=== PATIENT | female | born 1940 | race Caucasian/White ===

== ENCOUNTER → 2018-03-13 10:01 | Outpatient (CLI) | payer MEDICARE, MEDICAID, SELFPAY ==
[2018-03-13 10:08] LABS: Bacteria Urine None Seen; RBC Urine None Seen (0-5/HPF); WBC Urine None Seen (0-5/HPF)
[2018-03-13 10:46] LABS: Add Manual Diff / Slide Review NO; Appearance Urine UA CLEAR; Bilirubin Urine UA NEGATIVE (NEGATIVE); Color Urine UA YELLOW; Eosinophils Percent Auto 1.4 % (2-4); Glucose Urine UA NEGATIVE (Normal); Hematocrit 44.2 % (36-46); Hemoglobin 14.8 g/dL (12.0-16.0); Ketones Urine UA NEGATIVE (NEGATIVE); Leukocyte Esterase Urine UA NEGATIVE (NEGATIVE); Lymphocytes Percent Auto 36.2 % (25-40); Mean Corpuscular HGB Conc 33.4 % (30-36); Mean Corpuscular Hemoglobin 30.9 PG (26-34); Mean Corpuscular Volume 92.5 fL (80-100); Monocytes Percent Auto 7.8 % (3-14); Neutrophils Absolute Auto 3100 /uL (3000-5900); Neutrophils Percent Auto 53.6 % (50-75); Nitrite Urine UA Negative (Negative); Occult Blood Urine UA NEGATIVE (Negative); Platelet Count 198 X10^3/uL (150-400); Protein Urine UA NEGATIVE (Negative); Red Blood Cell Count 4.78 X10^6/uL (4.0-5.2); Red Cell Distribution Width 13.7 % (11.6-14.8); Specific Gravity Urine UA 1.015 (1.000-1.035); Urobilinogen Urine UA 0.2 E.U./dL (0.2); White Blood Cell Count 5.9 X10^3/uL (4.5-11.0)
[2018-03-13 10:55] LABS: Culture Indicated Urine Cult Not Indicated; Urine Comments Microscopic Normal
[2018-03-13 11:08] LABS: Alanine Aminotransferase 30 IU/L (9-52); Albumin Globulin Ratio 1.3 (1.0-2.8); Alkaline Phosphatase 112 U/L (38-126); Aspartate Aminotransferase 20 IU/L (14-36); BUN Creatinine Ratio 22.9 (6-22); Bilirubin Total 0.4 mg/dL (0.2-1.3); Blood Urea Nitrogen 16 mg/dL (7-17); Calcium 9.1 mg/dL (8.4-10.2); Carbon Dioxide 26 mmol/L (22-32); Chloride 104 mmol/L (98-107); Estimated Glomerular Filt Rate > 60.0 mL/min (>60); Globulin 3.1 g/dL (1.7-4.1); Glucose 92 mg/dL (80-110); HEMOLYSIS < 15 (0-50); Sodium 142 mmol/L (137-145); Total Protein 7.1 g/dL (6.3-8.2)
[2018-03-13 11:39] LABS: Thyroid Stimulating Hormone 1.57 uIU/mL (0.47-4.68)
== END ==
PROVIDERS: Family Provider Family Medicine; PCP Family Medicine; Visit Provider Internal Medicine
DX: R30.0 Dysuria (principal)
CPT/HCPCS: 36415; 80053; 81001; 84443; 85025

== ENCOUNTER → 2018-03-24 08:59 | Outpatient (CLI) | payer MEDICARE, MEDICAID, SELFPAY ==
[2018-03-24 09:31] LABS: Occult Blood 1 Negative (Negative)
[2018-03-24 09:36] LABS: Occult Blood 3 Negative
[2018-03-24 09:37] LABS: Occult Blood 2 Negative
== END ==
PROVIDERS: PCP Family Medicine; Visit Provider Internal Medicine
DX: R10.9 Unspecified abdominal pain (principal)
CPT/HCPCS: 82270; 86677

== ENCOUNTER → 2018-05-27 09:07 | Outpatient (CLI) | payer MEDICARE, MEDICAID, SELFPAY ==
[2018-05-27 11:20] LABS: Cholesterol 176 mg/dL (140-199); HDL Cholesterol 56 mg/dL (40-60); LDL Cholesterol Calculated 102 mg/dL (<100); Triglycerides 92 mg/dL (35-150)
== END ==
PROVIDERS: PCP Family Medicine; Visit Provider Family Medicine
DX: E78.2 Mixed hyperlipidemia (principal)
CPT/HCPCS: 36415; 80061

== ENCOUNTER → 2018-06-18 10:08 | Outpatient (CLI) | payer MEDICARE, MEDICAID, SELFPAY ==
[2018-06-18 10:18] LABS: Bacteria Urine None Seen; RBC Urine None Seen (0-5/HPF); WBC Urine None Seen (0-5/HPF)
[2018-06-18 10:53] LABS: Add Manual Diff / Slide Review NO; Eosinophils Percent Auto 3.1 % (2-4); Hematocrit 44.1 % (36-46); Hemoglobin 14.9 g/dL (12.0-16.0); Lymphocytes Percent Auto 34.2 % (25-40); Mean Corpuscular HGB Conc 33.9 % (30-36); Mean Corpuscular Volume 91.6 fL (80-100); Monocytes Percent Auto 8.1 % (3-14); Neutrophils Absolute Auto 2400 /uL (3000-5900); Neutrophils Percent Auto 53.6 % (50-75); Platelet Count 209 X10^3/uL (150-400); Red Blood Cell Count 4.81 X10^6/uL (4.0-5.2); Red Cell Distribution Width 13.1 % (11.6-14.8); White Blood Cell Count 4.5 X10^3/uL (4.5-11.0)
[2018-06-18 11:17] LABS: Blood Urea Nitrogen 12 mg/dL (7-17); Calcium 9.4 mg/dL (8.4-10.2); Carbon Dioxide 30 mmol/L (22-32); Chloride 106 mmol/L (98-107); Estimated Glomerular Filt Rate > 60.0 mL/min (>60); Glucose 96 mg/dL (80-110); HEMOLYSIS < 15 (0-50); Potassium 4.8 mmol/L (3.4-5.1); Sodium 144 mmol/L (137-145)
[2018-06-18 11:23] LABS: Hemoglobin A1C% w Est Avg Glu 5.5 % (4.0-6.0)
[2018-06-18 11:24] LABS: Transferrin 244 mg/dL (206-381)
[2018-06-18 12:10] LABS: Appearance Urine UA CLEAR; Bilirubin Urine UA NEGATIVE (NEGATIVE); Color Urine UA YELLOW; Glucose Urine UA NEGATIVE (Normal); Ketones Urine UA NEGATIVE (NEGATIVE); Leukocyte Esterase Urine UA NEGATIVE (NEGATIVE); Nitrite Urine UA Negative (Negative); Occult Blood Urine UA NEGATIVE (Negative); Protein Urine UA NEGATIVE (Negative); Urobilinogen Urine UA 0.2 E.U./dL (0.2); pH Urine UA 7.5 (4.5-8.0)
[2018-06-18 12:39] LABS: Culture Indicated Urine Cult Not Indicated; Squamous Epithelial Cell Urine 0-1 /HPF
== END ==
PROVIDERS: PCP Family Medicine; Visit Provider Orthopaedic Surgery
DX: Z01.818 Encounter for other preprocedural examination (principal); M25.562 Pain in left knee; Z01.812 Encounter for preprocedural laboratory examination; D64.9 Anemia, unspecified; R73.9 Hyperglycemia, unspecified; N39.0 Urinary tract infection, site not specified
CPT/HCPCS: 36415; 80048; 81001; 83036; 84466; 85025; 93005

== ENCOUNTER 2018-06-30 16:04 | Observation (INO) | payer MEDICARE, MEDICAID, SELFPAY ==
[2018-06-16 09:55] VITALS: BMI 35.6
[2018-06-29] VITALS (32 sets, daily range): BP systolic 106–164; BP diastolic 50–93; PULSE 70–106; RESP 10–20; TEMP 35–36.7; O2SAT 92–99; BMI 35.2
--- NOTE | 2018-06-29 08:27 | DI.RAD.S_ITS ---
PROCEDURE: XR KNEE RT 1TO2V INDICATIONS: prosthesis placement TECHNIQUE: 2 view(s) of the knee acquired. COMPARISON: [facility], , KNEE 3V LEFT, 05/14/2011, 11:30. FINDINGS: Bones: Patient is status post knee joint arthroplasty. Hardware components are in expected positions. Visualized bony structures are intact. Soft tissues: Overlying postoperative changes are noted. IMPRESSION: Post right knee arthroplasty changes with anatomic right knee alignment. Dictated by: Prosper Joseph M.D. on 06/29/2018 at 17:01 Approved by: Prosper Joseph M.D. on 06/29/2018 at 17:02
[2018-06-29] MEDS: ACETAMINOPHEN 325 MG TABLET 975 MG PO (11:38)
[2018-06-29] MEDS: PREGABALIN 75 MG CAPSULE PO (11:38)
[2018-06-29] MEDS: CELECOXIB 200 MG CAPSULE PO (11:39)
[2018-06-29] MEDS: LACTATED RINGERS 1,000 ML 42 ML IV ×2 (12:00→15:39)
--- NOTE | 2018-06-29 12:53 | PM.PREOP ---
Pre-operative Note Interval Note Pre-op Check: Yes History & Physical Reviewed by Physician and Yes Exam Performed Changes: No
[2018-06-29] MEDS: CEFAZOLIN 2 GM/100 ML FROZ.PIGGY IV ×2 (14:15→21:01)
--- NOTE | 2018-06-29 14:46 | SUR.OPER ---
Supine on padded OR bed. Pillow under head, arms secured on padded armboards <90 degree abduction. Safety belt across torso. Non-operative leg secured with tape over blanket over lower leg. Operative leg secured in DeMayo positioner.
[2018-06-29] MEDS: BUPIVACAINE 0.25% W/ EPI VIAL 50 ML INJ (14:50)
[2018-06-29] MEDS: MORPHINE 4 MG/ML INJ INJ (14:51)
[2018-06-29] MEDS: BUPIVACAINE LIPOSOME 266 MG/20 ML VIAL INJ (14:51)
--- NOTE | 2018-06-29 16:27 | P.OP_ITS ---
Operative Date/Time/Diagnoses Date of procedure: 06/29/18 Time of procedure: 16:05 Pre-op diagnosis: Right knee osteoarthritis Post-op diagnosis: same Procedure & Clinicians Procedure: Right total knee replacement Same procedure as scheduled: Yes Indications: The patient has had progressively worsening right knee pain with radiographic changes consistent with arthritis. Non-operative management has failed and the patient has requested total knee replacement. The risks, benefits and alternatives to surgery were discussed with the patient prior to proceeding. Risks discussed included, but were not limited to, failure to relieve pain, stiffness, infection, nerve damage, deep venous thrombosis, pulmonary embolism, stroke, coma, heart attack, permanent paralysis and , as well as the potential need for eventual revision of the prosthetic. Surgeon: Hugo Morejon Director Of Field Sales: Coy Gallardo Click Yes if Unassisted: No Anesthesia Type: General, Spinal and Local Operative Notes Findings: Severe tricompartmental osteoarthritis worse in the medial compartment. Closure Type: primary Specimen(s): none sent Implants & Drains: Implants used in this procedure were manufactured by the [employer] and [employer] and included the BCS II Journey total knee replacement with a size 5 right cobalt chromium femur, 4 right non porous tibial base plate, a 15 mm cross-linked polyethylene insert and a 35 mm oval Era II patella. Applied: graft(s) Estimated Blood Loss (mL): 100 Blood products transfused: none Tourniquet time (min): 62 Procedure in detail: The patient was seen in the pre-operative area, where the patient identified the right knee as the operative site and this was marked with my initials. The patient received pre-operative antibiotics, and was taken to the operating room and placed on the operative table in the supine position. After satisfactory anesthesia, a timekeeper supervisor out was performed. The right leg was encircled with a tourniquet about the proximal thigh, and the leg was prepared from the toes to the tourniquet with ChloroPrep in the usual fashion and draped through sterile drapes. The leg was elevated and exsanguinated with Eschmark bandage and the tourniquet inflated to 250 mmHg pressure. The knee was approached through an approximately 18 cm incision centered over the patella and carried into the knee through a medial parapatellar arthrotomy. The anterior osteophytes and soft tissues were removed. The rotational landmarks of Esperanza's line and the transepicondylar axis were marked on the femur with electrocautery, and intramedullary guide holes for the femur and tibia were created. The distal femoral cut was made in 6 degrees of valgus using the intramedullary guide at the primary cut setting. The proximal tibial cut was then made using the intramedullary guide, taking 9 mm of bone off the less involved side. The extension gap was checked and the rotation of the femoral component confirmed with the gap balancing system. The anterior, posterior and chamfer cuts were then made. The posterior osteophytes and soft tissues were then removed. The posterior capsule was injected with part of a mixture of 50 ml 0.25% Marcaine mixed with 20 ml Exparel and 4 mg of morphine for post-operative pain control. The remainder of this mixture was injected into the capsule and subcutaneous tissues during cement curing. The tibia was prepared with the rotation set by an extra medullary guide. Trial tibial and femoral components were then placed and the intercondylar notch cut through the femoral trial. Range of motion was 0-120 degrees, with good stability throughout the range. The patella was then cut to accommodate the patellar prosthetic. There was no need for a lateral release. The trials were then removed, and the femoral hole plugged with a bone plug. The bone was prepared with pulsatile lavage, and dried with a sponge. Cement was applied and the final prosthetics placed. Excess cement was removed during and after cement curing. After confirming there was no extruded cement posteriorly, the final tibial insert was placed. The knee was copiously irrigated and the tourniquet deflated. Hemostasis was obtained. The capsule was closed with interrupted # 2 polyester suture. The subcutaneous layer was closed with 3-0 Vicryl, and the skin with a running 3-0 V-Lock suture and SteriStrips. An Aquacel Ag dressing was applied and the patient was taken to recovery having tolerated the procedure well. Complications: none Condition: stable Disposition: PACU Plan for aftercare: The patient will be maintained on a standard total knee replacement protocol with weight bearing as tolerated. The patient will receive aspirin and sequential compression devices for DVT prophylaxis. The patient will be discharged home when safe for the home environment.
[2018-06-29] MEDS: ONDANSETRON 4 MG/2 ML INJ IV ×3 (16:30→19:25)
[2018-06-29] MEDS: METOCLOPRAMIDE 10 MG/2 ML INJ IV (16:35)
[2018-06-29] MEDS: EPHEDRINE 25 EACH IM (17:18)
--- NOTE | 2018-06-29 17:27 | SUR.PHASEI ---
As of this time, PACU stay has been eventful. Dr Bates at bedside at 1715 for consultation. Since admit problems have been nausea with emesis despite Propofol in OR, Zpofran 8mg postop and Reglan 10mg postop. Some concern presented for primarily somnolent state and dropping sats so O2 was started. Giving antiemetic that had drowsiness as a side effect was not ideal and an order was rec'd for Ephedrine IM. Next problem presenting was skin becoming moist and cool although other VSS. Temps were seen to decrease and CHANDAN started. Attempt unsuccessful resume RA so O2 at 2L NC maintained. At this time temps slowly rising and somnolent response seen.
--- NOTE | 2018-06-29 17:37 | SUR.PHASEI ---
Denies shivers and overheated now, nausea remains, no pain reported.
[2018-06-29] MEDS: NALOXONE 0.4 MG/ML VIAL 0.1 MG IV ×2 (18:12→18:46)
--- NOTE | 2018-06-29 18:21 | SUR.PHASEI ---
Still with some diaphoresis. Reports nausea still felt. Denies pain post Narcan dose. Temps are rising and CHANDAN remains off.
--- NOTE | 2018-06-29 18:54 | SUR.PHASEI ---
After an emesis gave a second dose of Narcan fully realizing that duration of action is less than the Duramorph that is most probably behind the symptoms. Per Dr Bates, patient is okay to transfer.
[2018-06-29] MEDS: LACTATED RINGERS 1,000 ML 125 ML IV (19:25)
--- NOTE | 2018-06-29 19:37 | PC.NURSE ---
Sonali shift note: Patient arrived from PACU with Jordy RN in stable condition. Remain on O2 at 2L via NC, sats 95%. VSS and afebrile. No c/o pain or discomfort. C/O nausea, medicated with Zofran IV as ordered. Right knee with enio wrap overlying aquacel, CDI. Ice pack in place, and SCDs. Friends at bedside providing supportive care. Call light within reach, verbalized understanding of using call light for staff assistance at all times.
[2018-06-30] MEDS: ONDANSETRON 4 MG/2 ML INJ IV (00:24)
[2018-06-30 00:50] VITALS: BP 136/87; PULSE 84; RESP 16; TEMP 36.6; O2SAT 97
[2018-06-30] MEDS: METOCLOPRAMIDE 10 MG/2 ML INJ IV ×2 (02:40→08:25)
[2018-06-30] MEDS: LACTATED RINGERS 1,000 ML 125 ML IV ×2 (03:34→11:49)
--- NOTE | 2018-06-30 04:36 | PC.NURSE ---
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 MD notified and new order for Reglan made. After being medicated with Reglan, nausea quieted down, able to drink some francisca valdemar. Pt was incontinent of urine earlier in the shift but did not want bedding changed until nausea under control. Pt able to roll well in bed to assist with the linen change. Denies pain. Dressing CDI. Bed alarm on.
[2018-06-30 04:39] VITALS: BP 149/79; PULSE 79; RESP 18; TEMP 36.6; O2SAT 100
[2018-06-30] MEDS: CEFAZOLIN 2 GM/100 ML FROZ.PIGGY IV (05:59)
[2018-06-30 07:06] LABS: Hematocrit 39.4 % (36-46)
--- NOTE | 2018-06-30 07:59 | PM.PNPO.1 ---
Subjective Date Patient Seen: 06/30/18 Time Patient Seen: 07:59 Interval history: The patient reports she has had significant nausea since surgery. Pain control has been excellent. Exam Vital Signs (past 8 hours): - 06/30/18 00:50 06/30/18 04:39 Temperature 97.8 F 97.9 F Pulse Rate 84 79 Respiratory Rate 16 18 Blood Pressure 136/87 149/79 H Pulse Oximetry 97 100 Oxygen Delivery Method Nasal Cannula Oxygen Flow Rate 2 Narrative Exam Narrative: Right knee wound is dressed with no drainage on the bandage. Calf is soft. Light touch and motion are intact in the right lower extremity. Objective Labs Result Diagrams: 06/30/18 06:45 Labs: Laboratory Results - last 24 hr 06/30/18 06:45 Hgb 13.0 Hct 39.4 Assessment & Plan Post-op Postoperative Procedures Operation Date: 06/29/18 12:45 Actual Procedures Side Surgeon p Total Knee Arthroplasty Right Hugo Morejon MD Postoperative day: 1 Postoperative status: doing well and other (Significant nausea) Postoperative status narrative: The patient is doing well with the exception of significant postoperative nausea. Postoperative plan: routine post-op care, ambulate and advance diet Postoperative plan narrative: She is receiving antiemetics and we will continue this. She will start physical therapy today. She will discharge to the home of friends once she is stable. Time Spent With Patient less than 15 minutes
[2018-06-30 08:10] VITALS: BP 136/70; PULSE 88; RESP 18; TEMP 36.2; O2SAT 95
[2018-06-30] MEDS: ONDANSETRON 4 MG ODT PO (08:32)
[2018-06-30] MEDS: ACETAMINOPHEN 325 MG TABLET 975 MG PO ×3 (08:33→20:36)
[2018-06-30] MEDS: DOCUSATE 100 MG CAPSULE PO ×2 (08:34→20:36)
[2018-06-30] MEDS: ASPIRIN EC 81 MG TABLET PO ×2 (08:34→20:36)
[2018-06-30] MEDS: CELECOXIB 200 MG CAPSULE PO (08:34)
--- NOTE | 2018-06-30 09:00 | PT.IIE ---
Current Diagnoses Bilateral primary osteoarthritis of knee (06/29/18) Surgery Performed Operation Date: 06/29/18 12:45 Actual Procedures p Total Knee Arthroplasty(Right) - Hugo Morejon MD Surgical History (Last Updated 06/16/18 @ 10:15 by Farzana Quezada, RN) Status post bilateral cataract extraction (Acute) Anesthesia complication (Resolved) History of tonsillectomy (Resolved 1945) Hx of knee surgery (Resolved 1985) Status post appendectomy (Resolved 1951) Status post colonoscopy (Resolved 2008) Status post dilation and curettage (Resolved 1969) Status post dilation and curettage (Resolved 1989) Medical History (Last Updated 06/16/18 @ 12:14 by Farzana Quezada, LILI) Anxiety about health (Acute) Arthritis (Acute) Hearing loss (Acute) RLS (restless legs syndrome) (Acute) Cataract (Chronic) Glaucoma (Chronic 1993) Oral herpes (Chronic) Scoliosis (Chronic) Shoulder pain (Chronic) Chicken pox (Resolved 1949) Gastric ulcer (Resolved 1983) Hemorrhoids (Resolved 1969) Measles (Resolved 1953) Mumps (Resolved 1966) Physical Therapy Inpatient Evaluation/Re-Eval M1 PT/OT-IP Prior Functional Status Start: 06/30/18 11:28 Freq: NEEDED Status: Active Protocol: Document 06/30/18 09:00 AB (Rec: 06/30/18 11:49 AB [email or web address]) Medical Review Prior Functional Status Medical History Reviewed Yes Communication able to make needs known Mobility and Gait stated that she is independent with all mobilities and ambulationw ithout AD Social History Household Members other Living Arrangements [place] Number of Floors (Floors) One Floor Number of Stairs To Enter/Railing? pt plans to stay at her friend 's house : 1 level house without steps to enter Home Environment Standard Height Toilet Walk in Shower Home Equipment Hand Held Shower Additional Social History Comment pt works at [employer] at [place] M2 PT-IP Current Condition Start: 06/30/18 11:28 Freq: NEEDED Status: Active Protocol: Document 06/30/18 09:00 AB (Rec: 06/30/18 11:49 AB [email or web address]) Physical Therapy Current Condition Current Condition Evaluation Date 06/30/18 Treatment Diagnosis s/p R TKA Onset Date 06/29/18 Weight Bearing Status Weight Bearing Status Weight Bear as Tolerated M3 PT-IP Subjective Start: 09/25/18 11:28 Freq: NEEDED Status: Active Protocol: Document 06/30/18 09:00 AB (Rec: 06/30/18 11:49 AB [email or web address]) Subjective Physical Therapy Visit Type Type Initial Evaluation Visit Start Time 09:00 Visit Stop Time 09:45 Total Visit Minutes 45 Number of UTILITIES EQUIPMENT REPAIRER Visits 0 Physical Therapy Visit Comments Patient Comments pt requested to use the toilet Therapy Pain Assessment Pain When Pain Assessed During Mobility Pain Present Pain Present Pain Reported Location Right Knee Intensity 5 Scale Used Numeric (1 - 10) Description Tightness Pain Management Techniques Apply Cold Timing of Activity with Medications M4 PT-IP Mobility and Gait Start: 06/30/18 11:28 Freq: NEEDED Status: Active Protocol: Document 06/30/18 09:00 AB (Rec: 06/30/18 11:49 AB [email or web address]) PT-Transfer Assessment Sit to and From Stand Sit to and from Stand Moderate Assistance 1 Person Assistance Use of Upper Extremities Equipment Transfer Assistive Device Gait Belt Front Wheeled Walker Orthotic/Prosthetic Devices or Brace: No Transfers Transfer Destination Bedside Commode Transfer Technique Stand Step Pivot Transfer Ability Level of Assist Moderate Assistance 1 Person Assistance Comments Mobility Comments pt was sitting on EOB with nursing and PT took over. pt with c/o increase nausea after transfers and unable to tolerate much after using the bedside commode. Gait Assessment Gait Gait Assistance Required: Moderate Assistance Distance (Feet) 3 Assistive Devices Assistive Device Gait Belt Front Wheeled Walker Gait Deviations General Gait Pattern Antalgic Decreased Stride Length Decreased Feet Clearance Factors Limiting Gait Function Factors Limiting Gait Function Decreased Activity Tolerance Decreased Strength Difficulty Following Directions Limited Range of Motion Pain Poor Balance Poor Safety Awareness Comments Gait Comments pt was able to took steps during transfers using FWW mod A and cues. PT-Balance Assessment Sitting Balance and Reactions Static Sitting Balance Ability Good Dynamic Sitting Balance Ability Good Standing Balance and Reactions Static Standing Balance Ability Fair Dynamic Standing Balance Ability Fair Device Used FWW M5 PT-IP Objective Assessments Start: 06/30/18 11:28 Freq: NEEDED Status: Active Protocol: Document 06/30/18 09:00 AB (Rec: 06/30/18 11:49 AB [email or web address]) Orientation Orientation/Cognition Level of Alertness Alert Orientation Name Age Birthday Month Date Year Day of Week Place Situation Safety Awareness Understands Safety Issues Gross Range of Motion Lower Extremity ROM Assessment Right Impaired Strength Lower Extremity Strength Assessment Right Impaired Knee 3-/5 Muscle Tone Muscle Tone WNL Yes M6 PT-IP Treatment Start: 06/30/18 11:28 Freq: NEEDED Status: Active Protocol: Document 06/30/18 09:00 AB (Rec: 06/30/18 11:49 AB [email or web address]) Physical Therapy Treatment Exercises Exercises Ankle Pumps Quad Sets Seated Knee Flexion/Extension Education Education Provided Precautions Weight Bearing Status Post-Op Packet Safety M7 PT-IP Assessment and Plan Start: 06/30/18 11:28 Freq: NEEDED Status: Active Protocol: Document 06/30/18 09:00 AB (Rec: 06/30/18 11:49 AB [email or web address]) PT Summary Assessment and Plan Potential Rehabilitation Potential Good Status of Condition at Evaluation Evolving Summary Impairments Pain ROM Strength Balance Coordination Sensation Tone Cognition Bed Mobility Transfers Gait Activity Tolerance Assessment Summary pt requiring mod A with transfers using FWW and plans to go her friend's house on d/ c. caregiver training set up this afternoon at 2pm and will conduct further caregiver training if appropriate. will continue to assess. Goals Bed Mobility Goal Standby Assistance Transfer Goal Standby Assistance Front Wheeled Walker Gait Goal Standby Assistance Front Wheel Walker Gait Distance 100 Days to Meet Goals 3 Frequency of Treatment Frequency Of Treatment Twice a Day Treatment Plan Physical Therapy Treatment Plan Bed Mobility Training Transfer Training Gait Training Therapeutic Exercise Balance Retraining Post Op Education Discharge Planning Hot or Cold Pack Neuromuscular Re-ed Coordination Retraining Manual Therapy Other Recommendations and Next Treatment ambulation Focus Recommendations To Nursing Amount of Assist Needed 1 Person Assist Discharge Recommendations PT Discharge Recommendations Home with 28/04 Assist Outpatient PT Equipment Needed for Home Before FWW Discharge
[2018-06-30 11:40] VITALS: BP 117/68; PULSE 84; RESP 18; TEMP 36.5; O2SAT 99
[2018-06-30] MEDS: OXYCODONE IR 5 MG TABLET PO (13:17)
--- NOTE | 2018-06-30 14:10 | PT.IPTN ---
Current Diagnoses Bilateral primary osteoarthritis of knee (06/29/18) Surgery Performed Operation Date: 06/29/18 12:45 Actual Procedures p Total Knee Arthroplasty(Right) - Hugo Morejon MD Physical Therapy Treatment Note M2 PT-IP Current Condition Start: 06/30/18 11:28 Freq: NEEDED Status: Active Protocol: Document 06/30/18 09:00 AB (Rec: 06/30/18 11:49 AB [email or web address]) Physical Therapy Current Condition Current Condition Evaluation Date 06/30/18 Treatment Diagnosis s/p R TKA Onset Date 06/29/18 Weight Bearing Status Weight Bearing Status Weight Bear as Tolerated M3 PT-IP Subjective Start: 06/30/18 11:28 Freq: NEEDED Status: Active Protocol: Document 06/30/18 14:10 AB (Rec: 06/30/18 17:02 AB [email or web address]) Subjective Physical Therapy Visit Type Type Treatment Note Visit Start Time 14:10 Visit Stop Time 14:50 Total Visit Minutes 40 Number of SPRING ASSEMBLER Visits 0 Therapy Pain Assessment Pain When Pain Assessed During Mobility Pain Present Pain Present Pain Reported Location Right Knee Scale Used pain scale not stated Pain Management Techniques Apply Cold Timing of Activity with Medications M4 PT-IP Mobility and Gait Start: 06/30/18 11:28 Freq: NEEDED Status: Active Protocol: Document 06/30/18 14:10 AB (Rec: 06/30/18 17:02 AB [email or web address]) PT-Bed Mobility Assessment Supine to Sit Supine to Sit Standby Assistance Sit to Supine Sit to Supine Standby Assistance Scooting Scooting to Edge of Bed Standby Assistance PT-Transfer Assessment Sit to and From Stand Sit to and from Stand Contact Guard Assistance Equipment Transfer Assistive Device Gait Belt Front Wheeled Walker Orthotic/Prosthetic Devices or Brace: No Transfers Transfer Destination Bed Transfer Technique Stand Step Pivot Transfer Ability Level of Assist Contact Guard Assistance 1 Person Assistance Comments Mobility Comments pt's friend present for caregiver training. educated on how to use safety belt and how to assist pt. caregiver was able to assist pt safely. Gait Assessment Gait Gait Assistance Required: Contact Guard Assist Distance (Feet) 30 Able to Maintain Weight Bearing Status Yes During Gait Assistive Devices Assistive Device Gait Belt Front Wheeled Walker Orthotic/Prosthetic Devices or Brace: No Gait Deviations General Gait Pattern Antalgic Decreased Stride Length Decreased Feet Clearance Factors Limiting Gait Function Factors Limiting Gait Function Decreased Activity Tolerance Decreased Strength Pain Poor Balance Comments Gait Comments pt completed ambulation using FWW 30 ft x 2 requiring CGA. pt's friend was able to assist pt safely. M5 PT-IP Objective Assessments Start: 06/30/18 11:28 Freq: NEEDED Status: Active Protocol: Document 06/30/18 09:00 AB (Rec: 06/30/18 11:49 AB [email or web address]) Orientation Orientation/Cognition Level of Alertness Alert Orientation Name Age Birthday Month Date Year Day of Week Place Situation Safety Awareness Understands Safety Issues Gross Range of Motion Lower Extremity ROM Assessment Right Impaired Strength Lower Extremity Strength Assessment Right Impaired Knee 3-/5 Muscle Tone Muscle Tone WNL Yes M6 PT-IP Treatment Start: 06/30/18 11:28 Freq: NEEDED Status: Active Protocol: Document 06/30/18 14:10 AB (Rec: 06/30/18 17:02 AB [email or web address]) Physical Therapy Treatment Education Education Provided Safety M7 PT-IP Assessment and Plan Start: 06/30/18 11:28 Freq: NEEDED Status: Active Protocol: Document 06/30/18 14:10 AB (Rec: 06/30/18 17:02 AB [email or web address]) PT Summary Assessment and Plan Potential Rehabilitation Potential Good Summary Impairments Pain ROM Strength Balance Coordination Sensation Tone Cognition Bed Mobility Transfers Gait Activity Tolerance Progress Towards Goals Slow Progress due to Pain Assessment Summary pt requiring CGA with mobility . caregiver training conducted and caregiver was able to safely assist pt. pt stated tht she will not be able to go to outpt PT for a few weeks due to home location and decrease activity tolerance. pt will then benefit from homehealth PT when pt goes home. pt may go home when medically stable. Goals Bed Mobility Goal Standby Assistance Transfer Goal Standby Assistance Front Wheeled Walker Gait Goal Standby Assistance Front Wheel Walker Gait Distance 100 Days to Meet Goals 3 Frequency of Treatment Frequency Of Treatment Twice a Day Treatment Plan Physical Therapy Treatment Plan Bed Mobility Training Transfer Training Gait Training Therapeutic Exercise Balance Retraining Post Op Education Discharge Planning Hot or Cold Pack Neuromuscular Re-ed Coordination Retraining Manual Therapy Other Recommendations and Next Treatment ambulation Focus Recommendations To Nursing Amount of Assist Needed 1 Person Assist Discharge Recommendations PT Discharge Recommendations Home with 24/7 Assist Home Health Outpatient PT Equipment Needed for Home Before FWW Discharge
[2018-06-30 15:54] VITALS: BP 152/70; PULSE 85; RESP 18; TEMP 36.5; O2SAT 96
[2018-06-30 20:30] VITALS: BP 150/81; PULSE 104; RESP 18; TEMP 36.6; O2SAT 96
[2018-06-30] MEDS: GABAPENTIN 300 MG CAPSULE 600 MG PO (20:36)
[2018-07-01 01:11] VITALS: BP 142/73; PULSE 94; RESP 16; TEMP 36.9; O2SAT 93
[2018-07-01] MEDS: OXYCODONE IR 5 MG TABLET PO (05:27)
[2018-07-01 06:00] VITALS: BP 157/76; PULSE 96; RESP 16; TEMP 36.8; O2SAT 96
--- NOTE | 2018-07-01 06:32 | PM.PNPO.1 ---
Subjective Date Patient Seen: 07/01/18 Time Patient Seen: 06:25 Interval history: The patient reports that she had difficulty with pain control last night due to unwillingness to use oxycodone. This improved when she did take pain medication. Exam Vital Signs (past 8 hours): - 07/01/18 01:11 07/01/18 06:00 Temperature 98.4 F 98.3 F Pulse Rate 94 H 96 H Respiratory Rate 16 16 Blood Pressure 142/73 H 157/76 H Pulse Oximetry 93 96 Oxygen Delivery Method Nasal Cannula Oxygen Flow Rate 0 Narrative Exam Narrative: Right knee wound is dressed with minimal drainage on the bandage. Calf is soft. Light touch and motion are intact in the right lower extremity. Objective Labs Result Diagrams: 06/30/18 06:45 Labs: Laboratory Results - last 24 hr 06/30/18 06:45 Hgb 13.0 Hct 39.4 Assessment & Plan Post-op Postoperative Procedures Operation Date: 06/29/18 12:45 Actual Procedures Side Surgeon p Total Knee Arthroplasty Right Hugo Morejon MD Postoperative day: 2 Postoperative status: doing well Postoperative status narrative: The patient is progressing with physical therapy slowly. Her pain control is adequate when she uses her medications as designed. She currently requires 24/7 care if she goes home today. Postoperative plan: routine post-op care Postoperative plan narrative: We will write for home health physical therapy. She would benefit from an additional day in the hospital to develop independence in case her caregivers have to leave the home for a period of time. She will be discharged tomorrow. Time Spent With Patient less than 15 minutes
[2018-07-01 07:50] VITALS: BP 155/80; PULSE 98; RESP 16; TEMP 36.9; O2SAT 94
--- NOTE | 2018-07-01 08:40 | CM.DPC ---
Addendum entered by KYLE Stahl 07/01/18 15:40: ADD: ANGIE spoke to pt's friend Selma ([phone]) who confirms that pt is now discharging to her home in [place] and would like [facility] there and then when pt goes home to switch to [facility] and SW updated that when pt goes home they would need to go through MD to set up [facility]. Friend Selma providing transport at d/c and would like SW to call when pt is officially discharged so that she can drive down from [place] to transport. SW called [facility] and updated that pt will not be utilizing them at d/c until later and they cancelled their start date. SW called [facility] with new referral and confirmed they can accept and faxed pt's clinicals with friends address and contact info and F2F and MD orders to review. Plan: ANGIE to follow for likely pt d/c tomorrow to friend Selma's house in [place] with [facility] to open pt to service. SW to call friend Selma when pt is discharged for transport. KYLE Stahl Original Note: DCP Home with HH planning: Per MD, pt making medical progress and seems to have better pain management today but not stable for d/c yet but likely tomorrow with PT. ANGIE received a message from pt's friend/caregiver at d/c Selma who requests [facility] at d/c. SW called [facility] and confirmed that they do not provide service to the [facility] still at this time. ANGIE called [facility] and confirmed that they do provide HH to [place] and they confirmed they can accept the pt and can open her to PT service on FriJul.06 for PT. BEN Skelton faxed new referral clinicals along with F2F and MD orders to review. Plan: ANGIE to follow for likely pt d/c back to [place] with friend/caregiver Selma tomorrow if medically stable with [facility] PT. SW to fax d/c summary to [facility] at discharge and provide [facility] brochure to the pt. KYLE Stahl
[2018-07-01] MEDS: ACETAMINOPHEN 325 MG TABLET 975 MG PO ×2 (10:09→15:11)
[2018-07-01] MEDS: GABAPENTIN 300 MG CAPSULE 600 MG PO ×2 (10:10→21:04)
[2018-07-01] MEDS: CELECOXIB 200 MG CAPSULE PO (10:10)
[2018-07-01] MEDS: DOCUSATE 100 MG CAPSULE PO ×2 (10:10→21:12)
[2018-07-01] MEDS: SODIUM CHLORIDE 0.9% FLUSH 10 ML IV (10:10)
[2018-07-01] MEDS: ASPIRIN EC 81 MG TABLET PO ×2 (10:10→21:12)
[2018-07-01] MEDS: HYDROCODONE/ACET 5/325 TABLET 2 TAB PO ×3 (10:13→21:11)
[2018-07-01 12:11] VITALS: BP 149/76; PULSE 94; RESP 17; TEMP 37.3; O2SAT 95
--- NOTE | 2018-07-01 12:47 | PT.IPTN ---
Current Diagnoses Bilateral primary osteoarthritis of knee (06/29/18) Surgery Performed Operation Date: 06/29/18 12:45 Actual Procedures p Total Knee Arthroplasty(Right) - Hugo Morejon MD Physical Therapy Treatment Note M2 PT-IP Current Condition Start: 06/30/18 11:28 Freq: NEEDED Status: Active Protocol: Document 06/30/18 09:00 AB (Rec: 06/30/18 11:49 AB [email or web address]) Physical Therapy Current Condition Current Condition Evaluation Date 06/30/18 Treatment Diagnosis s/p R TKA Onset Date 06/29/18 Weight Bearing Status Weight Bearing Status Weight Bear as Tolerated M3 PT-IP Subjective Start: 06/30/18 11:28 Freq: NEEDED Status: Active Protocol: Document 07/01/18 11:20 GGD (Rec: 07/01/18 12:47 GGD [id number]) Subjective Physical Therapy Visit Type Type Treatment Note Visit Start Time 10:55 Visit Stop Time 11:20 Total Visit Minutes 25 Number of INSURANCE ACCOUNT SPECIALIST Visits 1 Physical Therapy Visit Comments Patient Comments Pt states she want's to be able to get out of bed without help, but she can't lift her leg. Therapy Pain Assessment Pain When Pain Assessed At Rest Pain Present Pain Present Pain Reported Location Right Knee Intensity 3 Scale Used Numeric (1 - 10) Pain Management Techniques Apply Cold Timing of Activity with Medications M4 PT-IP Mobility and Gait Start: 06/30/18 11:28 Freq: NEEDED Status: Active Protocol: Document 07/01/18 11:20 GGD (Rec: 07/01/18 12:47 GGD [id number]) PT-Bed Mobility Assessment Supine to Sit Supine to Sit Contact Guard Assistance Bedrails Scooting Scooting to Edge of Bed Standby Assistance PT-Transfer Assessment Sit to and From Stand Sit to and from Stand Contact Guard Assistance Minimal Assistance 1 Person Assistance Use of Upper Extremities Equipment Transfer Assistive Device Gait Belt Front Wheeled Walker Orthotic/Prosthetic Devices or Brace: No Transfers Transfer Destination Chair Toilet Comments Mobility Comments Used leg healthcare recruiter for bed mobility. Min A for sit to stand from toilet, CGA from bed. Gait Assessment Gait Gait Assistance Required: Contact Guard Assist Distance (Feet) 160 Able to Maintain Weight Bearing Status Yes During Gait Assistive Devices Assistive Device Gait Belt Front Wheeled Walker Orthotic/Prosthetic Devices or Brace: No Gait Deviations General Gait Pattern Antalgic Decreased Stride Length Decreased Feet Clearance Factors Limiting Gait Function Factors Limiting Gait Function Decreased Activity Tolerance Decreased Strength Limited Range of Motion Pain M5 PT-IP Objective Assessments Start: 06/30/18 11:28 Freq: NEEDED Status: Active Protocol: Document 06/30/18 09:00 AB (Rec: 06/30/18 11:49 AB [email or web address]) Orientation Orientation/Cognition Level of Alertness Alert Orientation Name Age Birthday Month Date Year Day of Week Place Situation Safety Awareness Understands Safety Issues Gross Range of Motion Lower Extremity ROM Assessment Right Impaired Strength Lower Extremity Strength Assessment Right Impaired Knee 3-/5 Muscle Tone Muscle Tone WNL Yes M6 PT-IP Treatment Start: 06/30/18 11:28 Freq: NEEDED Status: Active Protocol: Document 07/01/18 11:20 GGD (Rec: 07/01/18 12:47 GGD [id number]) Physical Therapy Treatment Exercises Exercises Ankle Pumps Quad Sets Heel Slides Seated Knee Flexion/Extension Education Education Provided Safety M7 PT-IP Assessment and Plan Start: 06/30/18 11:28 Freq: NEEDED Status: Active Protocol: Document 07/01/18 11:20 GGD (Rec: 07/01/18 12:47 GGD [id number]) PT Summary Assessment and Plan Summary Assessment Summary Pt progressing with gait. She need mod cues for bed mobility with use of leg healthcare recruiter. She needed assist for sit to stand from toilet. Frequency of Treatment Frequency Of Treatment Twice a Day Treatment Plan Physical Therapy Treatment Plan Bed Mobility Training Transfer Training Gait Training Therapeutic Exercise Balance Retraining Post Op Education Discharge Planning Hot or Cold Pack Neuromuscular Re-ed Coordination Retraining Manual Therapy Other Recommendations and Next Treatment ambulation Focus Recommendations To Nursing Amount of Assist Needed 1 Person Assist Discharge Recommendations PT Discharge Recommendations Home with 28/04 Assist Home Health Outpatient PT
--- NOTE | 2018-07-01 15:55 | PT.IPTN ---
Current Diagnoses Bilateral primary osteoarthritis of knee (06/29/18) Surgery Performed Operation Date: 06/29/18 12:45 Actual Procedures p Total Knee Arthroplasty(Right) - Hugo Morejon MD Physical Therapy Treatment Note M2 PT-IP Current Condition Start: 06/30/18 11:28 Freq: NEEDED Status: Active Protocol: Document 06/30/18 09:00 AB (Rec: 06/30/18 11:49 AB [email or web address]) Physical Therapy Current Condition Current Condition Evaluation Date 06/30/18 Treatment Diagnosis s/p R TKA Onset Date 06/29/18 Weight Bearing Status Weight Bearing Status Weight Bear as Tolerated M3 PT-IP Subjective Start: 06/30/18 11:28 Freq: NEEDED Status: Active Protocol: Document 07/01/18 15:55 GGD (Rec: 07/01/18 16:39 GGD [id number]) Subjective Physical Therapy Visit Type Type Treatment Note Visit Start Time 15:25 Visit Stop Time 15:55 Total Visit Minutes 30 Number of METAL BONDING CRIB ATTENDANT Visits 2 Physical Therapy Visit Comments Patient Comments Pt states that she want's to practice getting in and out of bed. Therapy Pain Assessment Pain When Pain Assessed At Rest Pain Present Pain Present Pain Reported Location Right Knee Scale Used pain scale not stated Pain Management Techniques Apply Cold Timing of Activity with Medications M4 PT-IP Mobility and Gait Start: 06/30/18 11:28 Freq: NEEDED Status: Active Protocol: Document 07/01/18 15:55 GGD (Rec: 07/01/18 16:39 GGD [id number]) PT-Bed Mobility Assessment Sit to Supine Sit to Supine Standby Assistance Scooting Scooting to Edge of Bed Standby Assistance PT-Transfer Assessment Sit to and From Stand Sit to and from Stand Minimal Assistance 1 Person Assistance Use of Upper Extremities Equipment Transfer Assistive Device Gait Belt Front Wheeled Walker Orthotic/Prosthetic Devices or Brace: No Transfers Transfer Destination Chair Comments Mobility Comments Used leg angle dozer operator for bed mobility. Gait Assessment Gait Gait Assistance Required: Contact Guard Assist Distance (Feet) 220 Able to Maintain Weight Bearing Status Yes During Gait Assistive Devices Assistive Device Gait Belt Front Wheeled Walker Orthotic/Prosthetic Devices or Brace: No Gait Deviations General Gait Pattern Antalgic Decreased Stride Length Decreased Feet Clearance Factors Limiting Gait Function Factors Limiting Gait Function Decreased Activity Tolerance Decreased Strength Limited Range of Motion Pain M5 PT-IP Objective Assessments Start: 06/30/18 11:28 Freq: NEEDED Status: Active Protocol: Document 06/30/18 09:00 AB (Rec: 06/30/18 11:49 AB [email or web address]) Orientation Orientation/Cognition Level of Alertness Alert Orientation Name Age Birthday Month Date Year Day of Week Place Situation Safety Awareness Understands Safety Issues Gross Range of Motion Lower Extremity ROM Assessment Right Impaired Strength Lower Extremity Strength Assessment Right Impaired Knee 3-/5 Muscle Tone Muscle Tone WNL Yes M6 PT-IP Treatment Start: 06/30/18 11:28 Freq: NEEDED Status: Active Protocol: Document 07/01/18 15:55 GGD (Rec: 07/01/18 16:39 GGD [id number]) Physical Therapy Treatment Exercises Exercises Ankle Pumps Quad Sets Heel Slides Seated Knee Flexion/Extension Education Education Provided Safety M7 PT-IP Assessment and Plan Start: 06/30/18 11:28 Freq: NEEDED Status: Active Protocol: Document 07/01/18 15:55 GGD (Rec: 07/01/18 16:39 GGD [id number]) PT Summary Assessment and Plan Summary Assessment Summary Pt progress with mobilty. She needed less assist with bed mobility using leg angle dozer operator. She needed min A for sit to stand from lower surface. She progress with gait. Frequency of Treatment Frequency Of Treatment Twice a Day Treatment Plan Physical Therapy Treatment Plan Bed Mobility Training Transfer Training Gait Training Therapeutic Exercise Balance Retraining Post Op Education Discharge Planning Hot or Cold Pack Neuromuscular Re-ed Coordination Retraining Manual Therapy Other Recommendations and Next Treatment Sit to stand. Focus Recommendations To Nursing Amount of Assist Needed 1 Person Assist Discharge Recommendations PT Discharge Recommendations Home with 28/04 Assist Home Health Outpatient PT
[2018-07-01 16:35] VITALS: BP 165/77; PULSE 92; RESP 17; TEMP 36.9; O2SAT 95
[2018-07-01 19:55] VITALS: BP 148/81; PULSE 93; RESP 17; TEMP 36.3; O2SAT 90
[2018-07-02 00:01] VITALS: BP 141/76; PULSE 89; RESP 18; TEMP 36.4; O2SAT 94
[2018-07-02 08:27] VITALS: BP 143/81; PULSE 108; RESP 16; TEMP 37.3; O2SAT 95
[2018-07-02] MEDS: ACETAMINOPHEN 325 MG TABLET 975 MG PO (09:25)
[2018-07-02] MEDS: ASPIRIN EC 81 MG TABLET PO (09:25)
[2018-07-02] MEDS: CELECOXIB 200 MG CAPSULE PO (09:25)
[2018-07-02] MEDS: DOCUSATE 100 MG CAPSULE PO (09:26)
--- NOTE | 2018-07-02 10:50 | PT.IPTN ---
Current Diagnoses Bilateral primary osteoarthritis of knee (06/29/18) Unilateral primary osteoarthritis, right knee (06/29/18) Surgery Performed Operation Date: 06/29/18 12:45 Actual Procedures p Total Knee Arthroplasty(Right) - Hugo Morejon MD Physical Therapy Treatment Note M2 PT-IP Current Condition Start: 06/30/18 11:28 Freq: NEEDED Status: Active Protocol: Document 06/30/18 09:00 AB (Rec: 06/30/18 11:49 AB [email or web address]) Physical Therapy Current Condition Current Condition Evaluation Date 06/30/18 Treatment Diagnosis s/p R TKA Onset Date 06/29/18 Weight Bearing Status Weight Bearing Status Weight Bear as Tolerated M3 PT-IP Subjective Start: 06/30/18 11:28 Freq: NEEDED Status: Active Protocol: Document 07/02/18 10:50 GGD (Rec: 07/02/18 12:49 GGD [id number]) Subjective Physical Therapy Visit Type Type Treatment Note Visit Start Time 10:20 Visit Stop Time 10:50 Total Visit Minutes 30 Number of SEGMENT PRODUCER Visits 3 Physical Therapy Visit Comments Patient Comments Pt states that she feels ready to go home. Therapy Pain Assessment Pain When Pain Assessed At Rest Pain Present Pain Present Pain Reported Location Right Knee Intensity 3 Scale Used Numeric (1 - 10) Pain Management Techniques Apply Cold M4 PT-IP Mobility and Gait Start: 06/30/18 11:28 Freq: NEEDED Status: Active Protocol: Document 07/02/18 10:50 GGD (Rec: 07/02/18 12:49 GGD [id number]) PT-Bed Mobility Assessment Supine to Sit Supine to Sit Standby Assistance Bedrails Sit to Supine Sit to Supine Standby Assistance Scooting Scooting to Edge of Bed Standby Assistance PT-Transfer Assessment Sit to and From Stand Sit to and from Stand Contact Guard Assistance Use of Upper Extremities Equipment Transfer Assistive Device Gait Belt Front Wheeled Walker Orthotic/Prosthetic Devices or Brace: No Transfers Transfer Destination Bed Chair Comments Mobility Comments Used leg manager transfer for bed mobility. Gait Assessment Gait Gait Assistance Required: Contact Guard Assist Distance (Feet) 220 Able to Maintain Weight Bearing Status Yes During Gait Assistive Devices Assistive Device Gait Belt Front Wheeled Walker Orthotic/Prosthetic Devices or Brace: No Gait Deviations General Gait Pattern Antalgic Decreased Stride Length Decreased Feet Clearance Factors Limiting Gait Function Factors Limiting Gait Function Decreased Activity Tolerance Decreased Strength Limited Range of Motion Pain M5 PT-IP Objective Assessments Start: 06/30/18 11:28 Freq: NEEDED Status: Active Protocol: Document 06/30/18 09:00 AB (Rec: 06/30/18 11:49 AB [email or web address]) Orientation Orientation/Cognition Level of Alertness Alert Orientation Name Age Birthday Month Date Year Day of Week Place Situation Safety Awareness Understands Safety Issues Gross Range of Motion Lower Extremity ROM Assessment Right Impaired Strength Lower Extremity Strength Assessment Right Impaired Knee 3-/5 Muscle Tone Muscle Tone WNL Yes M6 PT-IP Treatment Start: 06/30/18 11:28 Freq: NEEDED Status: Active Protocol: Document 07/02/18 10:50 GGD (Rec: 07/02/18 12:49 GGD [id number]) Physical Therapy Treatment Exercises Exercises Ankle Pumps Quad Sets Heel Slides Seated Knee Flexion/Extension M7 PT-IP Assessment and Plan Start: 06/30/18 11:28 Freq: NEEDED Status: Active Protocol: Document 07/02/18 10:50 GGD (Rec: 07/02/18 12:49 GGD [id number]) PT Summary Assessment and Plan Summary Assessment Summary Pt improving with bed mobility and not needing assist. She continue to improve with gait pace and distance. Frequency of Treatment Frequency Of Treatment Twice a Day Treatment Plan Physical Therapy Treatment Plan Bed Mobility Training Transfer Training Gait Training Therapeutic Exercise Balance Retraining Post Op Education Discharge Planning Hot or Cold Pack Neuromuscular Re-ed Coordination Retraining Manual Therapy Other Recommendations and Next Treatment Sit to stand. Focus Recommendations To Nursing Amount of Assist Needed 1 Person Assist Discharge Recommendations PT Discharge Recommendations Home with 28/04 Assist Home Health Outpatient PT
--- NOTE | 2018-07-02 12:06 | PM.DS.1 ---
History of Present Illness Date Patient Seen: 07/02/18 Time Patient Seen: 07:09 Chief complaint: [id number] RIGHT TOTAL KNEE ARTHROPLASTY Narrative: The patient has had progressively worsening right knee pain with radiographic changes consistent with arthritis. Non-operative management has failed and the patient has requested total knee replacement. The risks, benefits and alternatives to surgery were discussed with the patient prior to proceeding. Risks discussed included, but were not limited to, failure to relieve pain, stiffness, infection, nerve damage, deep venous thrombosis, pulmonary embolism, stroke, coma, heart attack, permanent paralysis and , as well as the potential need for eventual revision of the prosthetic. Discharge Providers Date of admission: 06/29/18 10:48 Primary care physician: Camilo Emmanuel MD Consults: 06/29/18 19:02 Consult to Discharge Planning Routine Comment: Consult to Physical Therapy Evaluate & Treat Comment: Physician Instructions: postop TKA protocol 07/01/18 06:29 Consult to Home Health Routine Comment: Reason For Exam: Home health PT 3 times weekly for 3 weeks 07/01/18 08:33 Consult to Home Health Routine Comment: Right total knee arthroplasty Reason For Exam: Set up [facility] for pt d/c home Discharge provider: Coy Gallardo PA-C Summary Discharge Diagnosis: Status post right total knee arthroplasty Hospital Course: Patient admitted to the hospital for right total knee arthroplasty. Patient consented to the same. Patient taken to the operating room underwent general spinal anesthesia. Patient also had local anesthesia. Patient underwent right total knee arthroplasty. Patient back in her room recovering well and is in stable condition. Exam Vital Signs (past 8 hours): - 07/02/18 08:27 Temperature 99.1 F Pulse Rate 108 H Respiratory Rate 16 Blood Pressure 143/81 H Pulse Oximetry 95 Oxygen Delivery Method Nasal Cannula Oxygen Flow Rate 0 Narrative Exam Narrative: Moderate swelling generally about the right knee. No erythema or ecchymosis. The dressing is clean, dry and intact. Motor functions intact to the distal right lower extremity. Sensation is grossly intact to light touch right lower extremity. Objective Labs Result Diagrams: 06/30/18 06:45 Discharge Plan Discharge Plan Patient Disposition: Home Health Service Transfer to: Home Health, Other Discharge comment: DC with PT Discharge Med Rec/Prescriptions Prescriptions: New hydrocodone-acetaminophen 5-325 mg Tablet 2 tab PO Q4HR PRN (Reason: Pain, Severe (7-10)) Qty: 60 RF: 0 aspirin 81 mg Tablet,Delayed Release (Dr/Ec) 81 mg PO BID Qty: 60 RF: 1 Continue multivitamin Capsule 1 cap PO DAILY Qty: 0 RF: 0 cholecalciferol (vitamin D3) [Vitamin D3] 1,000 unit Capsule 1,000 unit PO DAILY Qty: 0 RF: 0 gabapentin [Neurontin] 300 MG capsule 600 mg PO HS Qty: 60 RF: 6 acetaminophen-codeine [Tylenol-Codeine #3] 300-30 mg tablet 1 tab PO Q4-6H PRN (Reason: pain) Qty: 60 RF: 0 celecoxib 200 mg Capsule 200 mg PO QAM RF: 0 timolol 0.5 % Drops 1 drp EYE-BOTH QAM RF: 0 Follow up/Referrals: Camilo Emmanuel MD [Primary Care Provider] - (please follow up with dr emmanuel as needed [phone]) Hugo Morejon MD [Physician] - 1 Week () Provider Discharge Instructions Diet: Diet as Tolerated Activity: WBAT Cold/Heat Therapy: ice as needed Skin/Wound/Dressing Care Report to your healthcare provider any signs of infection, such as:: chills, fever, night sweats, increased pain and unusual drainage Dressing: keep clean and dry Visit Report/Discharge Packet Instructions: Hydrocodone Combination Products Visit Report Forms: Stroke Signs & Symptoms Discharge Data Primary Care Provider: Camilo Emmanuel Attending Provider: Hugo Morejon Admit Date/Time: 06/29/18 10:48
[2018-07-02] MEDS: HYDROCODONE/ACET 5/325 TABLET 2 TAB PO (13:01)
--- NOTE | 2018-07-02 16:08 | CM.DPC ---
DC NOte: Met w/pt and LILI Garcia today at bedside to review DCP. Pt remains agreeable to going home w/friend Selma and [facility] to assist. Pt plans to stay w/her friend for 2 weeks at least (in [place]) before returning to [place]. Pt confident about her DC today and has no further questions or concerns. Requested that inventory administrator Christopher fax [facility] pt's DC summary. ERICKA
== END 2018-07-02 13:23 | disposition home health service (06) ==
LOC: AC 07-02 11:53 → OR 07-02 16:30 → AC 07-02 16:33
PROVIDERS: Admitting Provider Orthopaedic Surgery; Family Provider Family Medicine; PCP Family Medicine; Visit Provider Orthopaedic Surgery
PROC: 0SRC0JZ Replacement of Right Knee Joint with Synthetic Substitute, Open Approach (ICD-10-PCS; CPT 27447; principal; 2018-06-29 12:45)
DX: M17.11 Unilateral primary osteoarthritis, right knee (principal); Z86.73 Personal history of transient ischemic attack (TIA), and cerebral infarction without residual deficits; I25.2 Old myocardial infarction
CPT/HCPCS: 27447; 36415; 73560; 85014; 85018; 97116; 97162; 97530; C1776; G0378; C9290; J0690; J1100; J2270; J2274; J2310; J2405; J2704; J2765; J3010

== ENCOUNTER → 2018-09-17 08:46 | Outpatient (CLI) | payer MEDICARE, MEDICAID, SELFPAY ==
[2018-06-29 19:33] VITALS: BMI 35.2
[2018-09-17 09:29] LABS: Add Manual Diff / Slide Review NO; Eosinophils Percent Auto 1.5 % (2-4); Hematocrit 42.2 % (36-46); Hemoglobin 14.2 g/dL (12.0-16.0); Lymphocytes Percent Auto 34.6 % (25-40); Mean Corpuscular HGB Conc 33.6 % (30-36); Mean Corpuscular Hemoglobin 31.6 PG (26-34); Mean Corpuscular Volume 94.2 fL (80-100); Monocytes Percent Auto 8.7 % (3-14); Neutrophils Absolute Auto 2700 /uL (3000-5900); Neutrophils Percent Auto 54.2 % (50-75); Platelet Count 229 X10^3/uL (150-400); Red Blood Cell Count 4.48 X10^6/uL (4.0-5.2); Red Cell Distribution Width 13.9 % (11.6-14.8); White Blood Cell Count 4.9 X10^3/uL (4.5-11.0)
[2018-09-17 09:45] LABS: BUN Creatinine Ratio 18.3 (6-22); Blood Urea Nitrogen 11 mg/dL (7-17); Calcium 9.4 mg/dL (8.4-10.2); Carbon Dioxide 26 mmol/L (22-32); Chloride 105 mmol/L (98-107); Estimated Glomerular Filt Rate > 60.0 mL/min (>60); Glucose 92 mg/dL (80-110); HEMOLYSIS < 15 (0-50); Potassium 4.2 mmol/L (3.4-5.1); Sodium 144 mmol/L (137-145)
== END ==
PROVIDERS: PCP Family Medicine; Visit Provider Orthopaedic Surgery
DX: Z01.818 Encounter for other preprocedural examination (principal)
CPT/HCPCS: 36415; 80048; 85025

== ENCOUNTER 2018-10-20 12:59 | Inpatient (IN) | payer MEDICARE, MEDICAID, SELFPAY ==
[2018-06-29 19:33] VITALS: BMI 35.2
[2018-10-01 10:45] VITALS: BMI 35.6
[2018-10-19] VITALS (16 sets, daily range): BP systolic 113–152; BP diastolic 45–90; PULSE 73–102; RESP 10–20; TEMP 35.8–36.3; O2SAT 90–100; BMI 35.3
[2018-10-19] MEDS: ACETAMINOPHEN 325 MG TABLET 975 MG PO ×3 (09:01→20:13)
[2018-10-19] MEDS: CELECOXIB 200 MG CAPSULE PO (09:01)
[2018-10-19] MEDS: PREGABALIN 75 MG CAPSULE PO (09:01)
[2018-10-19] MEDS: LACTATED RINGERS 1,000 ML 42 ML IV ×2 (09:19→11:14)
--- NOTE | 2018-10-19 09:19 | SUR.OPER ---
Supine on padded OR bed. Pillow under head, arms secured on padded armboards <90 degree abduction. Safety belt across torso. Non-operative leg secured with tape over blanket over lower leg. Operative leg secured in DeMayo/Deion positioner. Foam padded brace at thigh of operative leg.
--- NOTE | 2018-10-19 09:56 | PM.PREOP ---
Pre-operative Note Interval Note History & Physical reviewed/Exam performed by Physician: Yes Changes to H&P: No
--- NOTE | 2018-10-19 10:14 | P.OP_ITS ---
Operative Date/Time/Diagnoses Date of procedure: 10/19/18 Time of procedure: 11:45 Pre-op diagnosis: Left knee osteoarthritis Post-op diagnosis: same Procedure & Clinicians Procedure: Left total knee replacement Same procedure as scheduled: Yes Indications: The patient has had progressively worsening left knee pain with radiographic changes consistent with arthritis. Non-operative management has failed and the patient has requested total knee replacement. The risks, benefits and alternatives to surgery were discussed with the patient prior to proceeding. Risks discussed included, but were not limited to, failure to relieve pain, stiffness, infection, nerve damage, deep venous thrombosis, pulmonary embolism, stroke, coma, heart attack, permanent paralysis and , as well as the potential need for eventual revision of the prosthetic. Surgeon: Hugo Morejon Director Of Software Development: Coy Gallardo Click Yes if Unassisted: No Anesthesia Type: General and Local Operative Notes Findings: Severe tricompartmental osteoarthritis with bony erosion medially and large tricompartmental osteophytes. Closure Type: primary Specimen(s): none sent Implants & Drains: Implants used in this procedure were manufactured by the [employer] and [employer] and included the BCS II Journey total knee replacement with a size 5 left cobalt chromium femur, 4 left non porous tibial base plate, a 9 mm cross-linked polyethylene tibial insert, and a 35 mm oval Era II patella. Applied: implant(s) Estimated Blood Loss (mL): 50 Blood products transfused: none Tourniquet time (min): 59 Procedure in detail: The patient was seen in the pre-operative area, where the left knee was identified as the operative site and this was marked with my initials. The patient received pre-operative antibiotics, and was taken to the operating room and placed on the operative table in the supine position. After satisfactory anesthesia, a time cycle operator out? was performed. The left leg was encircled with a tourniquet about the proximal thigh, and the leg was prepared from the toes to the tourniquet with ChloroPrep in the usual fashion and draped through sterile drapes. The leg was elevated and exsanguinated with Eschmark bandage and the tourniquet inflated to 250 mmHg pressure. The knee was approached through an approximately 18 cm incision centered over the patella and carried into the knee through a medial parapatellar arthrotomy. The anterior osteophytes and soft tissues were removed. The rotational landmarks of Ogle's line and the transepicondylar axis were marked on the femur with electrocautery, and intramedullary guide holes for the femur and tibia were created. The distal femoral cut was made in 6 degrees of valgus using the intramedullary guide at the primary cut setting. The proximal tibial cut was then made using the intramedullary guide, taking 9 mm of bone off the less involved side. The extension gap was checked and the rotation of the femoral component confirmed with the gap balancing blocks. The anterior, posterior and chamfer cuts were then made. The posterior osteophytes and soft tissues were then removed. The posterior capsule was injected with part of a mixture of 60 ml 0.25% Marcaine mixed with 20 ml Exparel and 4 mg of morphine for post-operative pain control. The remainder of this mixture was injected into the capsule and subcutaneous tissues during cement curing. The tibia was prepared with the rotation set by an extra medullary guide. Trial tibial and femoral components were then placed and the intercondylar notch cut through the femoral trial. Range of motion was 0-125 degrees, with good stability throughout the range. The patella was then cut to accommodate the patellar prosthetic. There was no need for a lateral release. The trials were then removed, and the femoral hole plugged with a bone plug. The bone was prepared with pulsatile lavage, and dried with a sponge. Cement was applied and the final prosthetics placed. Excess cement was removed during and after cement curing. After confirming there was no extruded cement posteriorly, the final tibial insert was placed. The knee was copiously irrigated and the tourniquet deflated. Hemostasis was obtained. The capsule was closed with interrupted # 2 polyester sutures. The subcutaneous layer was closed with 3-0 Vicryl, and the skin with a running 3-0 V-Lock suture and SteriStrips. An Aquacel Ag dressing was applied and the patient was taken to recovery having tolerated the procedure well. Complications: none Condition: stable Disposition: PACU Plan for aftercare: The patient will be maintained on a standard total knee replacement protocol with weight bearing as tolerated. The patient will receive aspirin and sequential compression devices for DVT prophylaxis. The patient will be discharged home when safe for the home environment.
[2018-10-19] MEDS: CEFAZOLIN 2 GM/100 ML FROZ.PIGGY IV ×2 (10:16→17:57)
[2018-10-19] MEDS: TRANEXAMIC ACID 1,000 MG VIAL 2000 MG INJ (10:45)
[2018-10-19] MEDS: BUPIVACAINE 0.25% W/ EPI VIAL 50 ML INJ (10:50)
[2018-10-19] MEDS: BUPIVACAINE LIPOSOME 266 MG/20 ML VIAL INJ (10:50)
[2018-10-19] MEDS: MORPHINE 4 MG/ML INJ SUBCUT (10:52)
--- NOTE | 2018-10-19 12:04 | DI.RAD.S_ITS ---
PROCEDURE: XR KNEE LT 1TO2V INDICATIONS: post op total knee TECHNIQUE: 2 view(s) of the knee acquired. COMPARISON: [facility], CR, XR KNEE RT 1TO2V, 06/29/2018, 16:31. FINDINGS: Bones: Patient is status post left knee joint arthroplasty. Hardware components are in expected positions. Visualized bony structures are intact. Soft tissues: Overlying postoperative changes are noted. IMPRESSION: Normal postoperative examination. Dictated by: Dayron Bryant M.D. on 10/19/2018 at 11:34 Approved by: Dayron Bryant M.D. on 10/19/2018 at 11:35
[2018-10-19] MEDS: LACTATED RINGERS 1,000 ML 125 ML IV ×2 (14:32→23:24)
[2018-10-19] MEDS: ONDANSETRON 4 MG/2 ML INJ IV ×2 (16:05→21:30)
--- NOTE | 2018-10-19 16:38 | PT.IIE ---
Current Diagnoses Bilateral primary osteoarthritis of knee (10/19/18) Surgery Performed Operation Date: 10/19/18 10:00 Actual Procedures p Total Knee Arthroplasty(Left) - Hugo Morejon MD Surgical History (Last Updated 10/01/18 @ 10:47 by Farzana Quezada RN) History of arthroplasty of right knee (Acute 06/29/18) Status post bilateral cataract extraction (Acute) Anesthesia complication (Resolved) History of tonsillectomy (Resolved 1945) Hx of knee surgery (Resolved 1985) Status post appendectomy (Resolved 1951) Status post colonoscopy (Resolved 2008) Status post dilation and curettage (Resolved 1969) Status post dilation and curettage (Resolved 1989) Medical History (Last Updated 06/16/18 @ 12:14 by Farzana Quezada RN) Anxiety about health (Acute) Arthritis (Acute) Hearing loss (Acute) RLS (restless legs syndrome) (Acute) Cataract (Chronic) Glaucoma (Chronic 1993) Oral herpes (Chronic) Scoliosis (Chronic) Shoulder pain (Chronic) Chicken pox (Resolved 1949) Gastric ulcer (Resolved 1983) Hemorrhoids (Resolved 1969) Measles (Resolved 1953) Mumps (Resolved 1966) Physical Therapy Inpatient Evaluation/Re-Eval M1 PT/OT-IP Prior Functional Status Start: 10/19/18 16:05 Freq: NEEDED Status: Active Protocol: Document 10/19/18 15:30 (Rec: 10/19/18 16:37 [id number]) Medical Review Prior Functional Status Medical History Reviewed Yes Diet/Fluid Consistency Regular Communication No deficits noted Mobility and Gait Pt is an independent ambulator for home and community without AD. Pt also drives Activities of Daily Living and IADL's Pt is independent for ADLs and IADLs. Social History Household Members other Living Arrangements House Number of Floors (Floors) Two Floors Number of Stairs To Enter/Railing? no GRISEL but ramp Home Environment Standard Height Toilet Walk in Shower Ramp Home Equipment Front Wheel Walker Four Wheel Walker Straight Cane Raised Toilet Seat Without Armrests Shower Seat without Backrest Grab Bars Near Toilet Grab Bars In Shower Employment Status Retired Additional Social History Comment Pt lives in a 2 story house which the bottom floor is for guest. Pt states she will stay with her girlfriend and her in [place] after d/ c for 2 weeks like she did when she had her first R TKA 3 months ago. Her girlfriend will be able to be primary CG whose has a 1 story home without GRISEL. She has walk inshower with shower chair but no backrest. Pt's bathroom will be located right next to her bed and her girlfriend will always be there to help. She will then go back to her house but stay at the guest floor 2-3 weeks like she did before. The guest floor has no GRISEL and has walk in shower but no grab bars in the bathroom. She will then move back to second floor if she feels safe which has a ramp to enter, walk in shower and grab bars for both. Pt has SPC , FWW, 4 WW for all aforementioned places. Pt also states she has homehealth PT before for her R TKA. M2 PT-IP Current Condition Start: 10/19/18 16:05 Freq: NEEDED Status: Active Protocol: Document 10/19/18 15:30 HH (Rec: 10/19/18 16:37 [email or web address]) Physical Therapy Current Condition Current Condition Evaluation Date 10/19/18 Treatment Diagnosis L TKA, difficulty in walking, generazlied muscle weakness Onset Date 10/19/18 Weight Bearing Status Weight Bearing Status Weight Bear as Tolerated M3 PT-IP Subjective Start: 10/19/18 16:05 Freq: NEEDED Status: Active Protocol: Document 10/19/18 15:30 HH (Rec: 10/19/18 16:37 [email or web address]) Subjective Physical Therapy Visit Type Type Initial Evaluation Visit Start Time 15:30 Visit Stop Time 16:00 Total Visit Minutes 30 Notes Pt agreeable to mobilize with PT. Friend at bedside upon assessment. RN reports pt has numbness at her ankle and foot earlier this afternoon. Number of SALES ACCOUNT MANAGER Visits 0 Physical Therapy Visit Comments Patient Comments I feel a bit numb up around my upper thigh but not on my foot anymore. Patient Goals To return home without AD in 3 -4 weeks to amb without pain in 4weeks To have home health again for her TKA rehab Therapy Pain Assessment Pain When Pain Assessed During Mobility Pain Present Pain Present Pain Reported Location Right Knee Intensity 5 Scale Used Numeric (1 - 10) Description Aching Acute Pain Management Techniques Apply Cold Modification of Treatment Re-positioning Timing of Activity with Medications M4 PT-IP Mobility and Gait Start: 10/19/18 16:05 Freq: NEEDED Status: Active Protocol: Document 10/19/18 15:30 HH (Rec: 10/19/18 16:37 HH [email or web address]) PT-Bed Mobility Assessment Rolling Type of Rolling Roll to Right Level of Assist Contact Guard Assistance Supine to Sit Supine to Sit Contact Guard Assistance 1 Person Assistance Head of Bed Elevated Bedrails Sit to Supine Sit to Supine Contact Guard Assistance 1 Person Assistance Head of Bed Elevated Bedrails Scooting Scooting to Edge of Bed Contact Guard Assistance PT-Transfer Assessment Sit to and From Stand Sit to and from Stand Contact Guard Assistance 1 Person Assistance Use of Upper Extremities Equipment Transfer Assistive Device Bed Rail Gait Belt Front Wheeled Walker Transfers Transfer Destination Bed Chair Transfer Technique Stand Step Pivot Transfer Ability Level of Assist Contact Guard Assistance Comments Mobility Comments Pt requires CGA for overall bed mobility and transfer activities. Pt presents increased weight bearing on R side due to L knee pain. Pt denies pain and numbness at L foot but slight numbess at her L thigh. Pt needs min to mod cues to weight shift towards L LE during transfer. Pt understand safe transfers with stand step pivot and sit to stand with proper handplacements on armrest of the chair and walker. Gait Assessment Gait Gait Assistance Required: Contact Guard Assist Distance (Feet) 20 Able to Maintain Weight Bearing Status Yes During Gait Assistive Devices Assistive Device Gait Belt Front Wheeled Walker Gait Deviations General Gait Pattern Antalgic Decreased Stride Length Decreased Feet Clearance Factors Limiting Gait Function Factors Limiting Gait Function Decreased Activity Tolerance Decreased Sensation Decreased Strength Limited Range of Motion Pain Comments Gait Comments Pt amb from EOB to bedside window then room door and back to bedside chair x 2. Pt presents L antalgic gait due to pain with decreased L foot clearance and stride length. Pt also demonstrates decrease in turning speed. Requires mod cues for L heel strikes. Pt did not show acute distress and LOB but she did c/o slight nausea feeling. RN notified. Stair Climbing Assessment Comments Stair Climbing Comments did not attempt due to c/o nausea PT-Balance Assessment Sitting Balance and Reactions Static Sitting Balance Ability Normal Dynamic Sitting Balance Ability Normal Standing Balance and Reactions Static Standing Balance Ability Good Dynamic Standing Balance Ability Good Device Used FWW M5 PT-IP Objective Assessments Start: 10/19/18 16:05 Freq: NEEDED Status: Active Protocol: Document 10/19/18 15:30 HH (Rec: 10/19/18 16:37 [email or web address]) Orientation Orientation/Cognition Level of Alertness Alert Orientation Name Age Birthday Month Date Year Day of Week Place Situation Safety Awareness Understands Safety Issues Memory Description No Deficits Noted Gross Range of Motion Upper Extremity ROM Assessment Within Functional Limits Lower Extremity ROM Assessment Left Impaired Impairments knee flexion AROM 90 knee extension AROM 0 Strength Upper Extremity Strength Assessment Within Functional Limits Lower Extremity Strength Assessment Right Impaired Coordination Assessment Gross Coordination Gross Coordination WNL Sensation Assessment Sensation Gross Sensation Left LE Impaired Light Touch Impaired Proprioception (Position) Impaired Sensation Description Numbness Tingling Comments Sensation Comments overall hypersensitive on L thigh compared to R pt also c.o numbness and tingling sensation around upper thigh. Muscle Tone Muscle Tone WNL Yes M6 PT-IP Treatment Start: 10/19/18 16:05 Freq: NEEDED Status: Active Protocol: Document 10/19/18 15:30 (Rec: 10/19/18 16:37 [email or web address]) Physical Therapy Treatment Exercises Exercises Ankle Pumps Gluteal Sets Quad Sets Heel Slides Straight Leg Raises Education Education Provided Precautions Weight Bearing Status Post-Op Packet Safety Other Treatments Other Treatment Performed standing L knee terminal extension lateral weight shift to L in standing M7 PT-IP Assessment and Plan Start: 10/19/18 16:05 Freq: NEEDED Status: Active Protocol: Document 10/19/18 15:30 (Rec: 10/19/18 16:37 [email or web address]) PT Summary Assessment and Plan Potential Rehabilitation Potential Excellent Status of Condition at Evaluation Stable Summary Impairments Pain ROM Strength Sensation Bed Mobility Transfers Gait Activity Tolerance Assessment Summary Pt is a pleasant 78 yo female post op L TKA day 1. Pt presents difficulty in walking and slight generalized deconditioning. Pt required CGA for overall mobility today and min to mod cues to facilitate WB on L LE.However, pt did amb as kassie for 20 feet with antalgic gait and FWW 1 pa. Pt reports this is better than last time i had my R knee replaced. Pt also understood well of her precautions, safety management at home and rehab protocol due to her previous R TKA. In my professional opinion, d/c home with assistance and home health to cont rehab protocol. Goals Bed Mobility Goal Standby Assistance Transfer Goal Standby Assistance Gait Goal Standby Assistance Gait Distance 100 Other Goals 4WW for 100 feet with SBA 1p SPC gait training as tolerated Days to Meet Goals 3 Frequency of Treatment Frequency Of Treatment Twice a Day Treatment Plan Physical Therapy Treatment Plan Bed Mobility Training Transfer Training Gait Training Therapeutic Exercise Balance Retraining Post Op Education Discharge Planning Hot or Cold Pack Other Recommendations and Next Treatment transfer, gait training as kassie Focus try 4ww and possibly SPC. Recommendations To Nursing Amount of Assist Needed Standby Assistance 1 Person Assist Discharge Recommendations PT Discharge Recommendations Home with Assistance Home Health
[2018-10-19] MEDS: CODEINE/ACETAMINOPHEN 30/300 TABLET 2 TAB PO (17:57)
[2018-10-19] MEDS: GABAPENTIN 600 MG TABLET PO (20:14)
[2018-10-19] MEDS: ASPIRIN EC 81 MG TABLET PO (20:14)
[2018-10-19] MEDS: DOCUSATE 100 MG CAPSULE PO (20:14)
[2018-10-19] MEDS: HYDROCODONE/ACET 5/325 TABLET 1 TAB PO (21:29)
[2018-10-20] MEDS: HYDROMORPHONE 0.5 MG INJ IV (00:31)
[2018-10-20] MEDS: CEFAZOLIN 2 GM/100 ML FROZ.PIGGY IV (01:29)
[2018-10-20 04:55] VITALS: BP 117/69; PULSE 91; RESP 16; TEMP 36.4; O2SAT 92
[2018-10-20] MEDS: ONDANSETRON 4 MG/2 ML INJ IV ×2 (06:39→12:08)
[2018-10-20 07:03] LABS: Hematocrit 38.7 % (36-46); Hemoglobin 12.6 g/dL (12.0-16.0)
[2018-10-20 07:40] VITALS: BP 132/78; PULSE 88; RESP 18; TEMP 36.2; O2SAT 92
--- NOTE | 2018-10-20 07:58 | PM.PNPO.1 ---
Subjective Date Patient Seen: 10/20/18 Time Patient Seen: 07:58 Interval history: The patient had some pain control issues last night. She was given IV narcotics and has had substantial problems with nausea this morning. She is known to be quite sensitive to narcotics in terms of nausea. Exam Vital Signs (past 8 hours): - 10/20/18 04:55 10/20/18 07:40 Temperature 97.5 F L 97.2 F L Pulse Rate 91 H 88 Respiratory Rate 16 18 Blood Pressure 117/69 132/78 Pulse Oximetry 92 92 Oxygen Delivery Method Room Air Oxygen Flow Rate 0 Narrative Exam Narrative: Left knee wound is dressed with no drainage on the bandage. Calf is soft. Light touch and motion are intact in the left lower extremity. Objective Labs Result Diagrams: 10/20/18 06:35 Labs: Laboratory Results - last 24 hr 10/20/18 06:35 Hgb 12.6 Hct 38.7 Assessment & Plan Post-op Postoperative Procedures Operation Date: 10/19/18 10:00 Actual Procedures Side Surgeon p Total Knee Arthroplasty Left Hugo Morejon MD Postoperative day: 1 Postoperative status: doing well, urinary retention, anemia and other Postoperative status narrative: The patient is having significant nausea issues postoperatively. After her last total knee the only narcotic she tolerated was Tylenol with codeine. She has a mild expected post hemorrhagic anemia. Postoperative plan: routine post-op care, ambulate and advance diet Postoperative plan narrative: We will continue to treat her nausea with Zofran. I will add Celebrex as an anti-inflammatory to try to help with the baseline pain control to minimize the need for narcotics. She clearly is not ready for discharge home to her friend's house today. She likely will be ready for discharge tomorrow or the following day. Quality VTE Deep Vein Thrombosis/Pulmonary Embolism Present on Admission: No
[2018-10-20] MEDS: ONDANSETRON 4 MG ODT PO (09:13)
[2018-10-20] MEDS: MULTIVITAMIN 1 TABLET 1 TAB PO (09:14)
[2018-10-20] MEDS: CELECOXIB 200 MG CAPSULE PO (09:14)
[2018-10-20] MEDS: ASPIRIN EC 81 MG TABLET PO ×2 (09:14→21:52)
[2018-10-20] MEDS: DOCUSATE 100 MG CAPSULE PO ×2 (09:14→21:52)
[2018-10-20] MEDS: ATORVASTATIN 10 MG TABLET PO (09:14)
[2018-10-20] MEDS: TIMOLOL 0.5% OPHTH 1 DROPS EYE-BOTH (09:15)
[2018-10-20] MEDS: ACETAMINOPHEN 325 MG TABLET 975 MG PO ×2 (09:27→21:52)
[2018-10-20] MEDS: CODEINE/ACETAMINOPHEN 30/300 TABLET 2 TAB PO (09:40)
[2018-10-20 12:00] VITALS: BP 117/53; PULSE 69; RESP 18; TEMP 36.8; O2SAT 95
--- NOTE | 2018-10-20 12:04 | PT.IPTN ---
Current Diagnoses Bilateral primary osteoarthritis of knee (10/19/18) Surgery Performed Operation Date: 10/19/18 10:00 Actual Procedures p Total Knee Arthroplasty(Left) - Hugo Morejon MD Physical Therapy Treatment Note M2 PT-IP Current Condition Start: 10/19/18 16:05 Freq: NEEDED Status: Active Protocol: Document 10/19/18 15:30 HH (Rec: 10/19/18 16:37 HH [email or web address]) Physical Therapy Current Condition Current Condition Evaluation Date 10/19/18 Treatment Diagnosis L TKA, difficulty in walking, generazlied muscle weakness Onset Date 10/19/18 Weight Bearing Status Weight Bearing Status Weight Bear as Tolerated M3 PT-IP Subjective Start: 10/19/18 16:05 Freq: NEEDED Status: Active Protocol: Document 10/20/18 11:15 CLB (Rec: 10/20/18 12:03 CLB [email or web address]) Subjective Physical Therapy Visit Type Type Treatment Note Visit Start Time 11:15 Visit Stop Time 11:40 Number of CALENDER INSPECTOR Visits 1 Therapy Pain Assessment Pain When Pain Assessed During Mobility Pain Present Pain Present Pain Reported Location Right Knee Intensity 4 Scale Used Numeric (1 - 10) Pain Management Techniques Apply Cold Modification of Treatment Re-positioning Timing of Activity with Medications M4 PT-IP Mobility and Gait Start: 10/19/18 16:05 Freq: NEEDED Status: Active Protocol: Document 10/20/18 11:15 CLB (Rec: 10/20/18 12:03 CLB [email or web address]) PT-Bed Mobility Assessment Rolling Type of Rolling Roll to Right Level of Assist Standby Assistance Supine to Sit Supine to Sit Standby Assistance Scooting Scooting to Edge of Bed Standby Assistance PT-Transfer Assessment Sit to and From Stand Sit to and from Stand Contact Guard Assistance 1 Person Assistance Use of Upper Extremities Equipment Transfer Assistive Device Gait Belt Front Wheeled Walker Transfers Transfer Destination Chair Bedside Commode Transfer Technique Stand Step Pivot Transfer Ability Level of Assist Contact Guard Assistance Comments Mobility Comments Pt improved with bed mobility requiring SBA with flat bed and w/o the use of bed rails. Pt requires cues for bending knee with sit<>stand. Gait Assessment Gait Gait Assistance Required: Contact Guard Assist Distance (Feet) 40 Able to Maintain Weight Bearing Status Yes During Gait Assistive Devices Assistive Device Gait Belt Front Wheeled Walker Gait Deviations General Gait Pattern Antalgic Decreased Stride Length Decreased Feet Clearance Factors Limiting Gait Function Factors Limiting Gait Function Decreased Activity Tolerance Decreased Sensation Decreased Strength Limited Range of Motion Pain Comments Gait Comments Pt putting added wt on LLE using step through gait pattern. Pt is steady with FWW and has good safety awareness . Stair Climbing Assessment Comments Stair Climbing Comments Pt has no steps M5 PT-IP Objective Assessments Start: 10/19/18 16:05 Freq: NEEDED Status: Active Protocol: Document 10/19/18 15:30 (Rec: 10/19/18 16:37 [email or web address]) Orientation Orientation/Cognition Level of Alertness Alert Orientation Name Age Birthday Month Date Year Day of Week Place Situation Safety Awareness Understands Safety Issues Memory Description No Deficits Noted Gross Range of Motion Upper Extremity ROM Assessment Within Functional Limits Lower Extremity ROM Assessment Left Impaired Impairments knee flexion AROM 90 knee extension AROM 0 Strength Upper Extremity Strength Assessment Within Functional Limits Lower Extremity Strength Assessment Right Impaired Coordination Assessment Gross Coordination Gross Coordination WNL Sensation Assessment Sensation Gross Sensation Left LE Impaired Light Touch Impaired Proprioception (Position) Impaired Sensation Description Numbness Tingling Comments Sensation Comments overall hypersensitive on L thigh compared to R pt also c.o numbness and tingling sensation around upper thigh. Muscle Tone Muscle Tone WNL Yes M6 PT-IP Treatment Start: 10/19/18 16:05 Freq: NEEDED Status: Active Protocol: Document 10/20/18 11:15 CLB (Rec: 10/20/18 12:03 CLB [email or web address]) Physical Therapy Treatment Exercises Exercises Ankle Pumps Gluteal Sets Quad Sets Heel Slides Straight Leg Raises Short Arc Quads Education Education Provided Precautions Weight Bearing Status Post-Op Packet Safety M7 PT-IP Assessment and Plan Start: 10/19/18 16:05 Freq: NEEDED Status: Active Protocol: Document 10/20/18 11:15 CLB (Rec: 10/20/18 12:03 CLB [email or web address]) PT Summary Assessment and Plan Summary Assessment Summary Pt improved with bed mobility and gait distance. Pt was able to use toilet using hand rails and able to perform own pericare. Pt is using step through gait pattern and placing increased wt on LLE during ambulation. Pt seems able to d/c home with assist when medically stable. Goals Bed Mobility Goal Standby Assistance Transfer Goal Standby Assistance Gait Goal Standby Assistance Gait Distance 100 Other Goals 4WW for 100 feet with SBA 1p SPC gait training as tolerated Days to Meet Goals 3 Frequency of Treatment Frequency Of Treatment Twice a Day Treatment Plan Physical Therapy Treatment Plan Bed Mobility Training Transfer Training Gait Training Therapeutic Exercise Balance Retraining Post Op Education Discharge Planning Hot or Cold Pack Recommendations To Nursing Amount of Assist Needed Standby Assistance 1 Person Assist Discharge Recommendations PT Discharge Recommendations Home with Assistance
[2018-10-20 15:00] VITALS: BP 155/67; PULSE 80; RESP 18; TEMP 36.2; O2SAT 96
--- NOTE | 2018-10-20 15:03 | PT.IPTN ---
Current Diagnoses Bilateral primary osteoarthritis of knee (10/19/18) Surgery Performed Operation Date: 10/19/18 10:00 Actual Procedures p Total Knee Arthroplasty(Left) - Hugo Morejon MD Physical Therapy Treatment Note M2 PT-IP Current Condition Start: 10/19/18 16:05 Freq: NEEDED Status: Active Protocol: Document 10/19/18 15:30 HH (Rec: 10/19/18 16:37 HH [email or web address]) Physical Therapy Current Condition Current Condition Evaluation Date 10/19/18 Treatment Diagnosis L TKA, difficulty in walking, generazlied muscle weakness Onset Date 10/19/18 Weight Bearing Status Weight Bearing Status Weight Bear as Tolerated M3 PT-IP Subjective Start: 10/19/18 16:05 Freq: NEEDED Status: Active Protocol: Document 10/20/18 14:20 CLB (Rec: 10/20/18 15:03 CLB [email or web address]) Subjective Physical Therapy Visit Type Type Treatment Note Visit Start Time 14:20 Visit Stop Time 14:45 Total Visit Minutes 25 Number of LEAD MEDICAL TECHNOLOGIST Visits 2 Therapy Pain Assessment Pain When Pain Assessed During Mobility Location Right Knee Intensity 7 Scale Used Numeric (1 - 10) Pain Management Techniques Apply Cold Modification of Treatment Re-positioning Timing of Activity with Medications M4 PT-IP Mobility and Gait Start: 10/19/18 16:05 Freq: NEEDED Status: Active Protocol: Document 10/20/18 14:20 CLB (Rec: 10/20/18 15:03 CLB [id number]) PT-Bed Mobility Assessment Supine to Sit Supine to Sit Standby Assistance Sit to Supine Sit to Supine Minimal Assistance 1 Person Assistance Scooting Scooting to Edge of Bed Standby Assistance Scooting Up and Down in Bed Standby Assistance PT-Transfer Assessment Sit to and From Stand Sit to and from Stand Contact Guard Assistance 1 Person Assistance Use of Upper Extremities Equipment Transfer Assistive Device Gait Belt Front Wheeled Walker Transfers Transfer Destination Bed Toilet Transfer Technique Stand Step Pivot Transfer Ability Level of Assist Contact Guard Assistance Comments Mobility Comments Pt required Min A with LLE sit -supine Gait Assessment Gait Gait Assistance Required: Standby Assistance Distance (Feet) 220 Able to Maintain Weight Bearing Status Yes During Gait Assistive Devices Assistive Device Gait Belt Front Wheeled Walker Gait Deviations General Gait Pattern Antalgic Decreased Stride Length Decreased Feet Clearance Factors Limiting Gait Function Factors Limiting Gait Function Decreased Activity Tolerance Decreased Sensation Decreased Strength Limited Range of Motion Pain Comments Gait Comments Pt increased ambulation to ~ 220ft w/FWW/SBA. Pt remains steady during ambulation with good balance and safety awareness. M5 PT-IP Objective Assessments Start: 10/19/18 16:05 Freq: NEEDED Status: Active Protocol: Document 10/19/18 15:30 HH (Rec: 10/19/18 16:37 HH [email or web address]) Orientation Orientation/Cognition Level of Alertness Alert Orientation Name Age Birthday Month Date Year Day of Week Place Situation Safety Awareness Understands Safety Issues Memory Description No Deficits Noted Gross Range of Motion Upper Extremity ROM Assessment Within Functional Limits Lower Extremity ROM Assessment Left Impaired Impairments knee flexion AROM 90 knee extension AROM 0 Strength Upper Extremity Strength Assessment Within Functional Limits Lower Extremity Strength Assessment Right Impaired Coordination Assessment Gross Coordination Gross Coordination WNL Sensation Assessment Sensation Gross Sensation Left LE Impaired Light Touch Impaired Proprioception (Position) Impaired Sensation Description Numbness Tingling Comments Sensation Comments overall hypersensitive on L thigh compared to R pt also c.o numbness and tingling sensation around upper thigh. Muscle Tone Muscle Tone WNL Yes M6 PT-IP Treatment Start: 10/19/18 16:05 Freq: NEEDED Status: Active Protocol: Document 10/20/18 14:20 CLB (Rec: 10/20/18 15:03 CLB [id number]) Physical Therapy Treatment Exercises Exercises Quad Sets Heel Slides Education Education Provided Precautions Weight Bearing Status Post-Op Packet Safety M7 PT-IP Assessment and Plan Start: 10/19/18 16:05 Freq: NEEDED Status: Active Protocol: Document 10/20/18 14:20 CLB (Rec: 10/20/18 15:03 CLB [id number]) PT Summary Assessment and Plan Summary Assessment Summary Pt improved ambulation to ~ 220ft using step through gait pattern with good balance and safety awareness. Pt required SBA for supine to sit and Min A of LLE sit-supine. Goals Bed Mobility Goal Standby Assistance Transfer Goal Standby Assistance Gait Goal Standby Assistance Gait Distance 100 Other Goals 4WW for 100 feet with SBA 1p SPC gait training as tolerated Days to Meet Goals 3 Frequency of Treatment Frequency Of Treatment Twice a Day Treatment Plan Physical Therapy Treatment Plan Bed Mobility Training Transfer Training Gait Training Therapeutic Exercise Balance Retraining Post Op Education Discharge Planning Hot or Cold Pack Recommendations To Nursing Amount of Assist Needed Standby Assistance 1 Person Assist Discharge Recommendations PT Discharge Recommendations Home with Assistance
[2018-10-20] MEDS: PANTOPRAZOLE 40 MG VIAL 20 MG IV ×2 (16:20→21:53)
[2018-10-20] MEDS: LACTATED RINGERS 1,000 ML 75 ML IV (16:20)
[2018-10-20] MEDS: METOCLOPRAMIDE 10 MG/2 ML INJ IV (16:21)
[2018-10-20] MEDS: KETOROLAC 15 MG/ML VIAL 10 MG IV (18:42)
[2018-10-20] MEDS: TRAMADOL 50 MG TABLET PO (18:42)
[2018-10-20 20:30] VITALS: BP 154/81; PULSE 90; RESP 16; TEMP 36.4; O2SAT 96
[2018-10-20] MEDS: GABAPENTIN 600 MG TABLET PO (21:53)
--- NOTE | 2018-10-20 22:25 | PC.NURSE ---
1500- assumed care of pt from outgoing shift. Pt has been unable to void today. bladder scan showed roughly 250. pt has no urge to void. md ship's electronic warfare officer paged orders rec'd pt a few hours later was able to void a large amount, unfortunately, the urine missed the collection hat. pt reported that she was voiding for a while and felt that she had gone alot. Pt has been reporting nausea, reglan order rec'd and given, this seemed to really help pt. Pt reported that this was not the issue last time with her other knee replacement. Pt uses call light. ambulates steady with 1pa with walker. fluids infusing, seems to be helping pt quite well. Pt doesn't want to take any narcotics, new orders for pain meds rec'd. pt able to keep just over half of dinner down. able to tolerate oral intake of fluids. bed alarm on. pt likes all four side rails up. will continue to monitor.
[2018-10-21 00:30] VITALS: BP 129/53; PULSE 102; RESP 19; TEMP 36.9; O2SAT 93
[2018-10-21] MEDS: TRAMADOL 50 MG TABLET PO ×2 (00:46→09:09)
[2018-10-21] MEDS: LACTATED RINGERS 1,000 ML 75 ML IV (05:35)
[2018-10-21 05:42] VITALS: BP 116/73; PULSE 94; RESP 19; TEMP 36.4; O2SAT 96
--- NOTE | 2018-10-21 07:26 | PM.DS.1 ---
History of Present Illness Date Patient Seen: 10/21/18 Time Patient Seen: 07:20 Chief complaint: [id number] LEFT TOTAL KNEE ARTHROPLASTY Narrative: Patient seen bedside s/p L. TKA POD #2. Patient is doing well, her pain is controlled with tramadol and she is no longer having any nausea. She would like to go home. She is going to stay in [place] after her discharge, and will do outpatient therapy there. She denies CP, SOB, N/V, and calf pain. Discharge Providers Date of admission: 10/19/18 08:18 Primary care physician: Camilo Emmanuel MD Consults: 10/19/18 13:20 Consult to Discharge Planning Routine Comment: Consult to Physical Therapy Evaluate & Treat Comment: Physician Instructions: postop TKA protocol Discharge provider: Ericka Munoz PA-C Discharge Date: 10/21/18 Summary Discharge Diagnosis: Left knee osteoarthritis Hospital Course: Patient was admitted to the hospital status post left TKA with Dr. Morejon on 10/19/2018. She tolerated the procedure well and no major complications. She was transferred to the acute care floor. On the floor she did have some difficulty with nausea narcotics and was transitioned to tramadol which helped the nausea resolved and controlled her pain. She was seen by PT and recommended for discharge home. She is stable refer discharge on 10/21/2018. Status at Discharge Cognitive/behavioral status at discharge: Alert and oriented x3 Functional status at discharge: independent ambulation Overall status at discharge: patient is progressing back to baseline Time Spent with Patient Less than 30 minutes Exam Vital Signs (past 8 hours): - 10/21/18 00:30 10/21/18 05:42 Temperature 98.5 F 97.5 F L Pulse Rate 102 H 94 H Respiratory Rate 19 19 Blood Pressure 129/53 L 116/73 Pulse Oximetry 93 96 Oxygen Delivery Method Room Air Oxygen Flow Rate 0 Narrative Exam Narrative: Well-developed well-nourished no acute distress alert oriented x3. Dressing on left knee is clean dry and intact of signs of drainage no erythema minimal swelling around the joint. She has full range of motion of the ankle 2+ pulses and a soft and compressible calf. Objective Labs Result Diagrams: 10/20/18 06:35 Discharge Plan Discharge Plan Patient Disposition: Home Discharge Med Rec/Prescriptions Prescriptions: New acetaminophen 325 mg Tablet 975 mg PO TID Qty: 0 RF: 0 aspirin 81 mg Tablet,Delayed Release (Dr/Ec) 81 mg PO BID Qty: 0 RF: 0 tramadol 50 mg Tablet 50 mg PO Q6H PRN (Reason: pain) Qty: 40 RF: 0 docusate sodium 100 mg Capsule 100 mg PO BID Qty: 0 RF: 0 hydroxyzine pamoate [Vistaril] 50 mg capsule 50 mg PO QID PRN (Reason: nausea) Qty: 60 RF: 0 Continue multivitamin Capsule 1 cap PO DAILY Qty: 0 RF: 0 gabapentin [Neurontin] 300 MG capsule 600 mg PO HS Qty: 60 RF: 6 atorvastatin [Lipitor] 10 mg tablet 10 mg PO DAILY Qty: 90 RF: 3 acetaminophen-codeine [Tylenol-Codeine #3] 300-30 mg tablet 1 tab PO Q4-6H PRN (Reason: pain) Qty: 60 RF: 0 celecoxib 200 mg Capsule 200 mg PO QAM RF: 0 timolol 0.5 % Drops 1 drp EYE-BOTH QAM RF: 0 Follow up/Referrals: Camilo Emmanuel MD [Primary Care Provider] - Hguo Morejon MD [Physician] - (Follow up on 11/02/18 at 1:20pm with Coy Gallardo PA-C at the [facility] office.) Provider Discharge Instructions Diet: Diet as Tolerated Activity: Weightbearing as tolerated, use walker until cleared by PT. Do home exercises, aggressively elevate (toes above your nose.) Cold/Heat Therapy: Apply ice 20 minutes at a time at least hourly to affected area while awake Skin/Wound/Dressing Care Report to your healthcare provider any signs of infection, such as:: chills, fever, night sweats, increased pain, unusual drainage and unusual redness Dressing: Keep Aquacel dressing clean, dry, and intact. May shower with it in place, no soaking. Visit Report/Discharge Packet Instructions: DI for Knee Replacement, Hydroxyzine, Tramadol Visit Report Forms: Stroke Signs & Symptoms Discharge Data Primary Care Provider: Camilo Emmanuel Attending Provider: Hugo Morejon Admit Date/Time: 10/19/18 08:18 Discharges patient from system. Discharge Date/Time: 10/21/18 14:29 Quality VTE Deep Vein Thrombosis/Pulmonary Embolism Present on Admission: No
[2018-10-21 08:00] VITALS: BP 140/70; PULSE 107; RESP 16; TEMP 36.8; O2SAT 86
[2018-10-21] MEDS: ONDANSETRON 4 MG ODT PO (09:09)
[2018-10-21] MEDS: DOCUSATE 100 MG CAPSULE PO (09:10)
[2018-10-21] MEDS: CELECOXIB 200 MG CAPSULE PO (09:10)
[2018-10-21] MEDS: ATORVASTATIN 10 MG TABLET PO (09:11)
[2018-10-21] MEDS: MULTIVITAMIN 1 TABLET 1 TAB PO (09:11)
[2018-10-21] MEDS: ASPIRIN EC 81 MG TABLET PO (09:12)
--- NOTE | 2018-10-21 09:30 | PT.IPTN ---
Current Diagnoses Bilateral primary osteoarthritis of knee (10/19/18) Surgery Performed Operation Date: 10/19/18 10:00 Actual Procedures p Total Knee Arthroplasty(Left) - Hugo Morejon MD Physical Therapy Treatment Note M2 PT-IP Current Condition Start: 10/19/18 16:05 Freq: NEEDED Status: Active Protocol: Document 10/19/18 15:30 HH (Rec: 10/19/18 16:37 HH [id number]) Physical Therapy Current Condition Current Condition Evaluation Date 10/19/18 Treatment Diagnosis L TKA, difficulty in walking, generazlied muscle weakness Onset Date 10/19/18 Weight Bearing Status Weight Bearing Status Weight Bear as Tolerated M3 PT-IP Subjective Start: 10/19/18 16:05 Freq: NEEDED Status: Active Protocol: Document 10/21/18 09:30 GGD (Rec: 10/21/18 11:15 GGD [id number]) Subjective Physical Therapy Visit Type Type Treatment Note Visit Start Time 09:00 Visit Stop Time 09:30 Total Visit Minutes 30 Number of FISH CLEANER Visits 3 Physical Therapy Visit Comments Patient Comments Pt states she feels ready to go home. Therapy Pain Assessment Pain When Pain Assessed During Mobility Pain Present Pain Present Pain Reported M4 PT-IP Mobility and Gait Start: 10/19/18 16:05 Freq: NEEDED Status: Active Protocol: Document 10/21/18 09:30 GGD (Rec: 10/21/18 11:15 GGD [id number]) PT-Bed Mobility Assessment Supine to Sit Supine to Sit Contact Guard Assistance Scooting Scooting to Edge of Bed Standby Assistance PT-Transfer Assessment Sit to and From Stand Sit to and from Stand Contact Guard Assistance 1 Person Assistance Use of Upper Extremities Equipment Transfer Assistive Device Gait Belt Front Wheeled Walker Transfers Transfer Destination Chair Transfer Ability Level of Assist Contact Guard Assistance Gait Assessment Gait Gait Assistance Required: Standby Assistance Distance (Feet) 220 Able to Maintain Weight Bearing Status Yes During Gait Assistive Devices Assistive Device Gait Belt Front Wheeled Walker Gait Deviations General Gait Pattern Antalgic Decreased Stride Length Decreased Feet Clearance Factors Limiting Gait Function Factors Limiting Gait Function Decreased Activity Tolerance Decreased Sensation Decreased Strength Limited Range of Motion Pain M5 PT-IP Objective Assessments Start: 10/19/18 16:05 Freq: NEEDED Status: Active Protocol: Document 10/19/18 15:30 HH (Rec: 10/19/18 16:37 HH [id number]) Orientation Orientation/Cognition Level of Alertness Alert Orientation Name Age Birthday Month Date Year Day of Week Place Situation Safety Awareness Understands Safety Issues Memory Description No Deficits Noted Gross Range of Motion Upper Extremity ROM Assessment Within Functional Limits Lower Extremity ROM Assessment Left Impaired Impairments knee flexion AROM 90 knee extension AROM 0 Strength Upper Extremity Strength Assessment Within Functional Limits Lower Extremity Strength Assessment Right Impaired Coordination Assessment Gross Coordination Gross Coordination WNL Sensation Assessment Sensation Gross Sensation Left LE Impaired Light Touch Impaired Proprioception (Position) Impaired Sensation Description Numbness Tingling Comments Sensation Comments overall hypersensitive on L thigh compared to R pt also c.o numbness and tingling sensation around upper thigh. Muscle Tone Muscle Tone WNL Yes M6 PT-IP Treatment Start: 10/19/18 16:05 Freq: NEEDED Status: Active Protocol: Document 10/21/18 09:30 GGD (Rec: 10/21/18 11:15 GGD [id number]) Physical Therapy Treatment Exercises Exercises Ankle Pumps Quad Sets Heel Slides Seated Knee Flexion/Extension M7 PT-IP Assessment and Plan Start: 10/19/18 16:05 Freq: NEEDED Status: Active Protocol: Document 10/21/18 09:30 GGD (Rec: 10/21/18 11:15 GGD [id number]) PT Summary Assessment and Plan Summary Assessment Summary Pt improving with mobility. She was safe and stable with gait. Pt safe for home D/C when medically stable. Frequency of Treatment Frequency Of Treatment Twice a Day Treatment Plan Physical Therapy Treatment Plan Bed Mobility Training Transfer Training Gait Training Therapeutic Exercise Balance Retraining Post Op Education Discharge Planning Hot or Cold Pack Recommendations To Nursing Amount of Assist Needed Standby Assistance 1 Person Assist Discharge Recommendations PT Discharge Recommendations Home with Assistance
[2018-10-21] MEDS: PANTOPRAZOLE 40 MG VIAL 20 MG IV (10:29)
[2018-10-21] MEDS: TIMOLOL 0.5% OPHTH 1 DROPS EYE-BOTH (10:30)
--- NOTE | 2018-10-21 10:30 | PC.NURSE ---
Am shift Pt is feeling well today, denies nausea. Pain well controlled with Tramadol. Plan to d/c mid day. PA into see Pt. IV removed for shower. Aquacell is CDI. Edema to BLE L>R, cont to enc elevation while at rest.
--- NOTE | 2019-04-20 | DI.RAD.S_ITS ---
PROCEDURE: XR SHOULDER RT MIN 2V INDICATIONS: CPPD TECHNIQUE: 3 views of the shoulder were acquired. COMPARISON: [facility], CR, SHOULDER MIN 2VW (RT), 08/22/2011, 15:59. FINDINGS: Bones: No fractures or dislocations. No suspicious bony lesions. There is severe glenohumeral joint degeneration moderate acromioclavicular joint degeneration. There is a large inferior osteophyte arising from the humeral head. Multiple intra-articular bodies are present in the glenohumeral joints. Soft tissues: Calcifications over humeral head suggesting rotator cuff calcific tendinitis. IMPRESSION: 1. Severe glenohumeral joint degeneration and moderate acromioclavicular joint degeneration. 2. Multiple intra-articular bodies. 3. Suspect rotator cuff calcific tendinitis. Dictated by: Edelmira Delarosa M.D. on 04/20/2019 at 14:00 Approved by: Edelmira Delarosa M.D. on 04/20/2019 at 14:03
--- NOTE | 2019-04-20 | DI.RAD.S_ITS ---
PROCEDURE: XR SHOULDER LT MIN 2V INDICATIONS: CPDD TECHNIQUE: 3 views of the shoulder were acquired. COMPARISON: [facility], SHOULDER MIN 2VW (LT), 08/22/2011, 15:58. FINDINGS: Bones: No fractures or dislocations. No suspicious bony lesions. Mild widening of the acromioclavicular joint. There is mild degenerative joint disease at the acromioclavicular joint and glenohumeral joint with small osteophytes.. Multiple calcified bodies are noted over the humeral head consistent with intra-articular bodies, significant includes compared to the last exam. Soft tissues: No suspicious soft tissue calcifications. IMPRESSION: 1. Mild degenerative joint disease. 2. Multiple calcified intra-articular bodies are present over the humeral head. Dictated by: Edelmira Delarosa M.D. on 04/20/2019 at 13:55 Approved by: Edelmira Delarosa M.D. on 04/20/2019 at 14:00
== END 2018-10-21 14:29 | disposition home or self-care (01) | DRG 470 ==
LOC: AC 10-21 12:52 → OR 10-22 09:26
PROVIDERS: Admitting Provider Orthopaedic Surgery; Family Provider Family Medicine; PCP Family Medicine; Visit Provider Orthopaedic Surgery
PROC: 0SRD0JZ Replacement of Left Knee Joint with Synthetic Substitute, Open Approach (ICD-10-PCS; CPT 27447; principal; 2018-10-19 10:00)
DX: M17.12 Unilateral primary osteoarthritis, left knee (principal); Z96.651 Presence of right artificial knee joint; M06.9 Rheumatoid arthritis, unspecified; R11.0 Nausea; T40.605A Adverse effect of unspecified narcotics, initial encounter
CPT/HCPCS: 36415; 73560; 85014; 85018; 97110; 97116; 97161; 97530; C1776; C9113; C9290; J0690; J1100; J1170; J1885; J2250; J2270; J2405; J2704; J2765; J3010

== ENCOUNTER → 2019-04-20 10:16 | Outpatient (CLI) | payer MEDICARE, MEDICAID, SELFPAY ==
[2018-10-19 14:16] VITALS: BMI 35.3
--- NOTE | 2019-04-20 | DI.RAD.S_ITS ---
PROCEDURE: XR ANKLE RT MIN 3V INDICATIONS: CPPD TECHNIQUE: 3 views of the ankle were acquired. COMPARISON: [facility], CR, FOOT 3V RIGHT, 10/31/2015, 9:26. [facility], CR, XR ANKLE LT MIN 3V, 04/20/2019, 10:45. FINDINGS: Bones: No fractures or dislocations. Ankle mortise is normally aligned. No suspicious bony lesions. Mild spurring in intermetatarsal joints is present mild degenerative changes. There is calcaneal spurring. Soft tissues: No tibiotalar joint effusion. Achilles tendon appears normal. Soft tissue swelling. IMPRESSION: 1. Mild degenerative joint disease. No chondrocalcinosis. 2. Calcaneal spurring. 3. Soft tissue swelling. Dictated by: Edelmira Delarosa M.D. on 04/20/2019 at 13:52 Approved by: Edelmira Delarosa M.D. on 04/20/2019 at 13:55
--- NOTE | 2019-04-20 | DI.RAD.S_ITS ---
PROCEDURE: XR ANKLE LT MIN 3V INDICATIONS: CPPD TECHNIQUE: 3 views of the ankle were acquired. COMPARISON: [facility], CR, XR ANKLE RT MIN 3V, 04/20/2019, 10:45. FINDINGS: Bones: No fractures or dislocations. Ankle mortise is normally aligned. No suspicious bony lesions. Corticated ossicles distal to the medial and lateral malleoli are probably sequelae of old injury. Calcaneal spurring. There is mild degenerative joint disease of the tibiotalar joint, talonavicular joint and navicular cuneiform joint. Soft tissues: No tibiotalar joint effusion. Achilles tendon appears normal. There is soft tissue swelling. IMPRESSION: 1. No acute bony abnormalities. 2. Mild degenerative joint disease. No chondrocalcinosis. 3. Calcaneal spurring. 4. Soft tissue swelling. Dictated by: Edelmira Delarosa M.D. on 04/20/2019 at 13:49 Approved by: Edelmira Delarosa M.D. on 04/20/2019 at 13:52
[2019-04-20 11:30] LABS: Add Manual Diff / Slide Review NO; Basophils Absolute Auto 0 /uL (0-100); Basophils Percent Auto 0.2 % (0-2); Eosinophils Absolute Auto 0 /uL (0-450); Hematocrit 46.1 % (36-46); Lymphocytes Absolute Auto 1200 /uL (1100-4500); Lymphocytes Percent Auto 11.7 % (25-40); Mean Corpuscular HGB Conc 32.7 % (30-36); Mean Corpuscular Hemoglobin 30.2 PG (26-34); Mean Corpuscular Volume 92.4 fL (80-100); Monocytes Absolute Auto 600 /uL (0-900); Monocytes Percent Auto 6.2 % (3-14); Neutrophils Absolute Auto 8300 /uL (1500-7000); Neutrophils Percent Auto 81.9 % (50-75); Platelet Count 249 X10^3/uL (150-400); Red Blood Cell Count 4.98 X10^6/uL (4.0-5.2); Red Cell Distribution Width 14.4 % (11.6-14.8); White Blood Cell Count 10.1 X10^3/uL (4.5-11.0)
[2019-04-20 11:55] LABS: Erythrocyte Sedimentation Rate 5 MM/HR (0-20)
[2019-04-20 11:58] LABS: Alanine Aminotransferase 10 IU/L (9-52); Albumin 4.5 g/dL (3.5-5.0); Albumin Globulin Ratio 1.6 (1.0-2.8); Alkaline Phosphatase 119 U/L (38-126); Aspartate Aminotransferase 16 IU/L (14-36); Bilirubin Total 0.5 mg/dL (0.2-1.3); Blood Urea Nitrogen 15 mg/dL (7-17); C-Reactive Protein Quant 0.5 mg/dL (<1.0); Calcium 10.2 mg/dL (8.4-10.2); Carbon Dioxide 26 mmol/L (22-32); Chloride 105 mmol/L (98-107); Estimated Glomerular Filt Rate > 60.0 mL/min (>60); Globulin 2.8 g/dL (1.7-4.1); Glucose 118 mg/dL (80-110); HEMOLYSIS < 15 (0-50); Sodium 142 mmol/L (137-145); Total Protein 7.3 g/dL (6.3-8.2)
== END ==
PROVIDERS: Family Provider Family Medicine; PCP Family Medicine; Visit Provider Internal Medicine Rheumatology
DX: M11.20 Other chondrocalcinosis, unspecified site (principal)
CPT/HCPCS: 36415; 73030; 73610; 80053; 85025; 85651; 86140

== ENCOUNTER → 2019-08-23 08:38 | Outpatient (CLI) | payer MEDICARE, MEDICAID, SELFPAY ==
[2018-10-19 14:16] VITALS: BMI 35.3
--- NOTE | 2019-08-23 08:39 | DI.RAD.S_ITS ---
PROCEDURE: XR LUMBAR SPINE MIN 4V INDICATIONS: Lumbosacral spondylosis TECHNIQUE: 5 views of the lumbar spine were acquired. COMPARISON: [facility], CR, XR LUMBAR SPINE WITH OBLIQUES, 07/22/2017, 13:10. [facility], MR, L-SPINE WITHOUT CONTRAST, 10/18/2014, 9:33. FINDINGS: Bones: 5 nonrib-bearing vertebrae are present. There is moderate levoscoliosis measuring 27.8? with apex at L3. There is grade 1 anterolisthesis of L4 on L5 and trace retrolisthesis of L2 on L3 and L3 on L4. No vertebral body compression fractures. No suspicious bony lesions. There is degenerative disc disease, moderate to severe at T11-T12, L2-L3 and L3-L4, and mild/moderate at other levels. There is severe facet arthropathy at L3-L4 L4 L5 and L5-S1. Soft tissues: Overlying bowel gas pattern is normal. No suspicious soft tissue calcifications. Calcified plaques in aorta consist with osteoporosis. Oblique images: No pars defects. IMPRESSION: 1. Degenerative disc and facet disease in lumbar spine. 2. Moderate severe scoliosis. Dictated by: Edelmira Delarosa M.D. on 08/23/2019 at 12:09 Approved by: Edelmira Delarosa M.D. on 08/23/2019 at 12:12
== END ==
PROVIDERS: Family Provider Family Medicine; PCP Family Medicine; Visit Provider Physical Medicine & Rehabilitation
DX: M47.27 Other spondylosis with radiculopathy, lumbosacral region (principal); M47.26 Other spondylosis with radiculopathy, lumbar region; M51.14 Intervertebral disc disorders with radiculopathy, thoracic region; M51.16 Intervertebral disc disorders with radiculopathy, lumbar region; M41.86 Other forms of scoliosis, lumbar region
CPT/HCPCS: 72110

== ENCOUNTER → 2019-08-30 11:32 | Outpatient (CLI) | payer MEDICARE, MEDICAID, SELFPAY ==
[2018-10-19 14:16] VITALS: BMI 35.3
--- NOTE | 2019-08-30 | DI.MG.S_ITS ---
BILATERAL DIGITAL SCREENING MAMMOGRAM 3D/2D WITH CAD: 08/30/2019 CLINICAL: Routine screening. Comparison is made to exams dated: 11/26/2016 mammogram, 12/13/2014 mammogram, and 12/21/2012 mammogram - [facility]. The tissue of both breasts is predominantly fatty. Current study was also evaluated with a Computer Aided Detection (CAD) system. No significant masses, calcifications, or other findings are seen in either breast. There has been no significant interval change. IMPRESSION: NEGATIVE There is no mammographic evidence of malignancy. A 1 year screening mammogram is recommended. This exam was interpreted at Station ID: [id number]. NOTE: For mammograms, a report in lay terms will be sent to the patient. Approximately 15% of breast malignancies will not be visualized mammographically. In the management of a palpable breast mass, a negative mammogram must not discourage biopsy of a clinically suspicious lesion. Electronically Signed By: Anshu kwon/samuel:08/30/2019 13:40:36 letter sent: Normal Exam ACR BI-RADS Category 1: Negative [id number]
== END ==
PROVIDERS: Family Provider Family Medicine; PCP Family Medicine; Visit Provider Family Medicine
DX: Z12.31 Encounter for screening mammogram for malignant neoplasm of breast (principal)
CPT/HCPCS: 77063; 77067

== ENCOUNTER 2019-11-30 10:02 | Outpatient (CLI) | payer MEDICARE, MEDICAID, SELFPAY ==
[2018-10-19 14:16] VITALS: BMI 35.3
[2019-11-30] VITALS (9 sets, daily range): BP systolic 150–189; BP diastolic 74–95; PULSE 76–87; RESP 16; TEMP 36.1; O2SAT 96–100
--- NOTE | 2019-11-30 10:04 | DI.RAD.S_ITS ---
PROCEDURE: PAIN L/S FACET INJ/BLK 1ST TERRIE COMPARISON: None. INDICATIONS: SCOLIOSIS FINDINGS: Needle tip localization has been performed, with appropriate needle tip positioning for bilateral L4, L5, and S1 medial branch block procedures. IMPRESSION: Normal needle tip localization as discussed 46 total medial branch block procedures. Dictated by: Artis Olivera M.D. on 11/30/2019 at 12:29 Approved by: Artis Olivera M.D. on 11/30/2019 at 12:29
--- NOTE | 2019-11-30 11:28 | PC.NURSE ---
DR PHELAN AWARE OF HIGH BP. DR PHELAN HAS DECIDED IT IS SAFE TO PROCEED.
[2019-11-30] MEDS: LIDOCAINE 1% 20 ML 10 ML INJ (11:38)
[2019-11-30] MEDS: BUPIVACAINE 0.5% (PF) VIAL 2 ML INJ (11:38)
[2019-11-30] MEDS: IOPAMIDOL 15 ML VIAL 3 ML INJ (11:38)
--- NOTE | 2019-11-30 11:50 | PC.NURSE ---
ASSISTING PT OFF TABLE AND TRANSPORTING TO POST PROC AREA IN STABLE CONDITION. PASSING RN CARE OF PT OFF TO MARTINEZ Velazquez RN.
--- NOTE | 2019-11-30 11:59 | P.PCN_ITS ---
Procedures Date/Time Date of procedure: 11/30/19 Time of procedure: 11:59 General Procedure description: Procedure description: 1. FACET ARTHROPATHY PROCEDURES: 1. BILATERAL- L4, L5 and S1 DIAGNOSTIC MB BLOCKS with LA Anesthetic PHYSICIAN: DO MIGUEL Sanchez Shruthi is referred by for treatment of Bilateral Axial LBP. DESCRIPTION OF PROCEDURE Fluoroscopically guided, contrast-controlled bilateral L4, L5 and S1 medial branch blocks with 0.5cc of 0.5% Marcaine. Following review of allergy and review of potential side effects and complications, including, but not necessarily limited to, infection, allergic reaction, local tissue breakdown, nerve injury, paralysis, stroke and possible , the patient indicated that the patient understood and agreed to proceed. An informed consent document was signed by the patient, witnessed by a nurse, and placed in the patient's chart. After review of previous anaesthesic history and IV conscious sedation the patient was deemed safe to proceed with todays procedure with IV conscious sedation as ASA class II designation. Safety time-out was performed to confirm patient ID, procedure to be performed and site of procedure. IV sedation was deemed unnecessary and thus not administered by the RN after DO order, titrated to patient comfort during the course of the procedure while the patient remained responsive to all verbal commands In the prone position, following sterile prep and drape of the lumbar region, the right L4, L5 and S1 anatomical location of the medial branch of the dorsal ramus was identified fluoroscopically. Subsequently an anesthetic skin wheal using 1% lidocaine solution was initiated at each of the anatomical spots. Subsequently then a 22-gauge 3.5-inch spinal needle was atraumatically introduced and advanced under fluoroscopic guidance at each of the corresponding sites at the right L4, L5 and S1 MB. After negative aspiration, 0.2cc of Isovue 200 was injected, confirming placement without vascular or intrathecal uptake. Subsequently then 0.5cc of 0.5% Marcaine solution was injected at each of the corresponding sites at the right L4, L5 and S1 medial branch locations. The identical procedure was replicated on the left. The patient tolerated the procedure well without signs or symptoms of complications prior to transfer to the recovery area continued monitoring without incident. Post-procedure, the patient was monitored initiating provocative activities to measure the amount of relief from block of the facetogenic pain. The patient reported a VAS of 5 prior to the procedure and a post-procedure VAS of 1. It has been a pleasure to assist in the diagnostic and therapeutic care of your patient. Total Fluoroscopy Time: 19 seconds Total Conscious Sedation Time: 24min POST OP INSTRUCTIONS The patient was provided with a Pain Log to complete over the next several hours and subsequent days prior to the patient's follow up with the ordering physician. If the patient has vocational rehabilitation supervisor relief to the solution applied, then they may be a candidate for medial branch rhizotomy. The patient is aware, was provided, once again, with a Pain Log and will follow up with the referring physician for review and clinical correlation Jesus Irby DO Complications: none
--- NOTE | 2019-11-30 12:06 | PC.NURSE ---
1200: Received patient post procedure, awake, alert, and pleasant. NO sedation required. VSS upon arrival.
== END 2019-11-30 12:11 ==
PROVIDERS: Family Provider Family Medicine; PCP Family Medicine; Referring Provider Physical Medicine & Rehabilitation; Visit Provider Physical Medicine & Rehabilitation
DX: M47.816 Spondylosis without myelopathy or radiculopathy, lumbar region (principal); M47.817 Spondylosis without myelopathy or radiculopathy, lumbosacral region
CPT/HCPCS: 64493; 64494; J2250; J3010

== ENCOUNTER → 2020-03-06 09:10 | Outpatient (CLI) | payer MEDICARE, MEDICAID, SELFPAY ==
[2018-10-19 14:16] VITALS: BMI 35.3
[2020-03-09 16:14] LABS: COVID19 Sendout Not Detected (Not Detected)
== END ==
PROVIDERS: Family Provider Family Medicine; PCP Family Medicine; Visit Provider Registered Nurse
DX: Z01.812 Encounter for preprocedural laboratory examination (principal)
CPT/HCPCS: 87635

== ENCOUNTER 2020-03-09 08:59 | Outpatient (CLI) | payer MEDICARE, MEDICAID, SELFPAY ==
[2018-10-19 14:16] VITALS: BMI 35.3
[2020-03-09] VITALS (7 sets, daily range): BP systolic 152–189; BP diastolic 70–86; PULSE 68–74; RESP 15–16; TEMP 36.3; O2SAT 97–99
--- NOTE | 2020-03-09 09:00 | DI.RAD.S_ITS ---
PROCEDURE: PAIN L/S FACET INJ/BLK 1ST TERRIE COMPARISON: [facility], XA, PAIN L/S FACET INJ/BLK 1ST TERRIE, 11/30/2019, 11:33. INDICATIONS: SPONDYLOSIS FINDINGS: Successful needle tip localization was bilaterally for L4, L5, and S1 medial branch block procedures. IMPRESSION: Bilateral 3 level needle tip localizations for medial branch block procedures, 6 total. Dictated by: Artis Olivera M.D. on 03/09/2020 at 12:15 Approved by: Artis Olivera M.D. on 03/09/2020 at 12:16
--- NOTE | 2020-03-09 10:42 | PC.NURSE ---
pt tolerated well, assisted pt off table to wc. transferred to pre proc room for further monitoring by LILI Mendes
[2020-03-09] MEDS: LIDOCAINE 1% 20 ML 10 ML INJ (10:46)
[2020-03-09] MEDS: IOPAMIDOL 15 ML VIAL 3 ML INJ (10:47)
[2020-03-09] MEDS: LIDOCAINE 2% INJ MDV 1 ML SUBCUT (10:51)
--- NOTE | 2020-03-09 11:04 | PM.PROC.1 ---
Procedures Date/Time Date of procedure: 03/09/20 Time of procedure: 11:04 General Procedure description: Procedure description: 1. FACET ARTHROPATHY PROCEDURES: 1. BILATERAL- L4, L5 and S1 DIAGNOSTIC MB BLOCKS with SA Anesthetic PHYSICIAN: DO MIGUEL Sanchez Shruthi is referred by for treatment of Bilateral Axial LBP. DESCRIPTION OF PROCEDURE Fluoroscopically guided, contrast-controlled bilateral L4, L5 and S1 medial branch blocks with 0.5cc of 0.1% Lidocaine. Following review of allergy and review of potential side effects and complications, including, but not necessarily limited to, infection, allergic reaction, local tissue breakdown, nerve injury, paralysis, stroke and possible , the patient indicated that the patient understood and agreed to proceed. An informed consent document was signed by the patient, witnessed by a nurse, and placed in the patient's chart. After review of previous anaesthesic history and IV conscious sedation the patient was deemed safe to proceed with todays procedure with IV conscious sedation as ASA class II designation. Safety time-out was performed to confirm patient ID, procedure to be performed and site of procedure. IV sedation was deemed unnecessary and thus not administered by the RN after DO order, titrated to patient comfort during the course of the procedure while the patient remained responsive to all verbal commands In the prone position, following sterile prep and drape of the lumbar region, the right L4, L5 and S1 anatomical location of the medial branch of the dorsal ramus was identified fluoroscopically. Subsequently an anesthetic skin wheal using 1% lidocaine solution was initiated at each of the anatomical spots. Subsequently then a 22-gauge 3.5-inch spinal needle was atraumatically introduced and advanced under fluoroscopic guidance at each of the corresponding sites at the right L4, L5 and S1 MB. After negative aspiration, 0.2cc of Isovue 200 was injected, confirming placement without vascular or intrathecal uptake. Subsequently then 0.5cc of 2% Lidocaine solution was injected at each of the corresponding sites at the right L4, L5 and S1 medial branch locations. The identical procedure was replicated on the left. The patient tolerated the procedure well without signs or symptoms of complications prior to transfer to the recovery area continued monitoring without incident. Post-procedure, the patient was monitored initiating provocative activities to measure the amount of relief from block of the facetogenic pain. The patient reported a VAS of 7 prior to the procedure and a post-procedure VAS of 1. It has been a pleasure to assist in the diagnostic and therapeutic care of your patient. Total Fluoroscopy Time: 11 seconds Total Conscious Sedation Time: 24min POST OP INSTRUCTIONS The patient was provided with a Pain Log to complete over the next several hours and subsequent days prior to the patient's follow up with the ordering physician. If the patient has safety pin assembling machine operator relief to the solution applied, then they may be a candidate for medial branch rhizotomy. The patient is aware, was provided, once again, with a Pain Log and will follow up with the referring physician for review and clinical correlation Jesus Irby DO Complications: none
--- NOTE | 2020-03-09 11:08 | PC.NURSE ---
ACCEPTED CARE OF PT IN POST PROC AREA IN STABLE CONDITION. VSS STABLE BASED ON BASELINE TODAY.
--- NOTE | 2020-03-09 11:09 | PC.NURSE ---
NO SEDATION MEDS GIVEN BEFORE OR DURING PROCEDURE.
== END 2020-03-09 11:40 | disposition home or self-care (01) ==
LOC: RAD 09:00
PROVIDERS: Family Provider Family Medicine; PCP Family Medicine; Referring Provider Physical Medicine & Rehabilitation; Visit Provider Physical Medicine & Rehabilitation
DX: M47.816 Spondylosis without myelopathy or radiculopathy, lumbar region (principal); M47.817 Spondylosis without myelopathy or radiculopathy, lumbosacral region; M54.5 Low back pain
CPT/HCPCS: 64493; 64494; 99152; J2250; J3010

== ENCOUNTER → 2020-03-20 09:25 | Outpatient (CLI) | payer MEDICARE, MEDICAID, SELFPAY ==
[2018-10-19 14:16] VITALS: BMI 35.3
[2020-03-20 10:09] LABS: Add Manual Diff / Slide Review NO; Basophils Absolute Auto 100 /uL (0-100); Basophils Percent Auto 0.9 % (0-2); Eosinophils Absolute Auto 100 /uL (0-450); Eosinophils Percent Auto 2.4 % (2-4); Hematocrit 42.9 % (36-46); Hemoglobin 14.3 g/dL (12.0-16.0); Lymphocytes Absolute Auto 2000 /uL (1100-4500); Lymphocytes Percent Auto 34.6 % (25-40); Mean Corpuscular HGB Conc 33.4 % (30-36); Mean Corpuscular Hemoglobin 31.1 PG (26-34); Mean Corpuscular Volume 93.4 fL (80-100); Monocytes Absolute Auto 500 /uL (0-900); Monocytes Percent Auto 8.2 % (3-14); Neutrophils Absolute Auto 3100 /uL (1500-7000); Neutrophils Percent Auto 53.9 % (50-75); Platelet Count 196 X10^3/uL (150-400); Red Blood Cell Count 4.59 X10^6/uL (4.0-5.2); Red Cell Distribution Width 13.4 % (11.6-14.8); White Blood Cell Count 5.7 X10^3/uL (4.5-11.0)
[2020-03-20 10:44] LABS: Alanine Aminotransferase 14 IU/L (<35); Albumin 3.8 g/dL (3.5-5.0); Albumin Globulin Ratio 1.6 (1.0-2.8); Alkaline Phosphatase 99 U/L (38-126); Aspartate Aminotransferase 21 IU/L (14-36); Bilirubin Total 0.5 mg/dL (0.2-1.3); Blood Urea Nitrogen 11 mg/dL (7-17); Calcium 9.4 mg/dL (8.4-10.2); Carbon Dioxide 29 mmol/L (22-32); Chloride 106 mmol/L (98-107); Estimated Glomerular Filt Rate > 60.0 mL/min (>60); Globulin 2.4 g/dL (1.7-4.1); Glucose 96 mg/dL (80-110); HEMOLYSIS < 15 (0-50); Potassium 4.5 mmol/L (3.4-5.1); Sodium 138 mmol/L (137-145); Total Protein 6.2 g/dL (6.3-8.2)
[2020-03-20 10:45] LABS: C-Reactive Protein Quant < 0.5 mg/dL (<1.0)
[2020-03-20 11:23] LABS: Erythrocyte Sedimentation Rate 3 MM/HR (0-20)
== END ==
PROVIDERS: Family Provider Family Medicine; PCP Family Medicine; Referring Provider Internal Medicine Rheumatology; Visit Provider Internal Medicine Rheumatology
DX: M11.20 Other chondrocalcinosis, unspecified site (principal); M47.27 Other spondylosis with radiculopathy, lumbosacral region; M41.20 Other idiopathic scoliosis, site unspecified
CPT/HCPCS: 36415; 80053; 85025; 85651; 86140; 99213

== ENCOUNTER → 2020-04-11 10:10 | Outpatient (CLI) | payer MEDICARE, MEDICAID, SELFPAY ==
[2018-10-19 14:16] VITALS: BMI 35.3
--- NOTE | 2020-04-11 10:11 | DI.MRI.S_ITS ---
PROCEDURE: MR LUMBAR SPINE WO CON INDICATIONS: Left L4 radiculopathy TECHNIQUE: Noncontrast sagittal T1 spin echo and T2 fast echo, coronal T2, sagittal STIR, axial T1 and T2 fast spin echo through the lumbar spine. COMPARISON: [facility], MR, L-SPINE WITHOUT CONTRAST, 10/18/2014, 9:33. [facility], CR, XR LUMBAR SPINE WITH OBLIQUES, 07/22/2017, 13:10. FINDINGS: Image quality: Excellent. Alignment and Curvature: 5 lumbar type vertebral bodies are present by plain film. Moderate leftward curvature of the midlumbar spine. Mild grade 1 retrolisthesis of L1 on L2, L2 on L3, and L3 on L4. Mild grade 1 anterolisthesis of L4-L5 and L5 on S1. Bone Marrow: Marrow is of normal overall signal. No acute vertebral body compression fractures. Mild reactive signal throughout the endplates of the lumbar and lower thoracic spine. Spinal Cord: Conus medullaris terminates at the L1-L2 disc space level. Visualized cord demonstrates normal signal and size. Paraspinous Soft Tissues: No paravertebral masses. Incompletely visualized right interpolar renal cysts measuring at least 33 mm. Incompletely visualized left inferior pole renal cyst measuring at least 10 cm. L1-L2: Moderate disc height loss and desiccation. Mild diffuse disc bulge. Moderate right and mild left facet hypertrophy. Mild ligamentum flavum hypertrophy and epidural lipomatosis. Mild canal stenosis. Mild left and severe right foraminal stenosis. Right L1 nerve root compression, new since the prior examination. L2-L3: Moderate disc height loss and desiccation. Mild diffuse disc bulge. Moderate right and mild left facet hypertrophy. Mild canal stenosis. Mild left and moderate right foraminal stenosis, as before. No change. L3-L4: Moderate disc height loss and desiccation. Mild diffuse disc bulge with superimposed right far lateral protrusion. Moderate facet and ligament flavum hypertrophy bilaterally. There is increased, severe canal stenosis. There is increased, severe right and moderate left foraminal stenosis. New right L3 nerve root compression. L4-L5: Moderate disc desiccation. Mild disc height loss. Mild diffuse disc bulge. Severe bilateral facet hypertrophy. There is increased, severe canal stenosis. There is increased, moderate subarticular foraminal stenosis bilaterally. L5-S1: Severe disc height loss and desiccation. Mild diffuse disc bulge with superimposed left lateral protrusion/osteophyte. Moderate facet hypertrophy bilaterally. There is increased, moderate canal stenosis. There is increased, severe left foraminal stenosis. No change in mild right foraminal stenosis. New left L5 nerve root compression. IMPRESSION: 1. Multilevel degenerative disc and facet disease, as well as ligamentum flavum hypertrophy and epidural lipomatosis. 2. Multilevel canal stenoses, worst at L3-L4 and L4-L5, where there are increased, severe canal stenoses. 3. Multilevel foraminal stenoses, worst at L1-L2, L3-L4, and L5-S1, where there is associated intraforaminal nerve root compression. Recommend correlation with clinical symptoms to ascertain relevance of these findings. 4. Incompletely visualized bilateral renal cystic lesions, which could be further assessed initially with ultrasound, if clinically indicated. Dictated by: Magui Sunshine M.D. on 04/11/2020 at 11:22 Approved by: Magiu Sunshine M.D. on 04/11/2020 at 11:29
== END ==
PROVIDERS: Family Provider Family Medicine; PCP Family Medicine; Referring Provider Physical Medicine & Rehabilitation; Visit Provider Physical Medicine & Rehabilitation
DX: M47.27 Other spondylosis with radiculopathy, lumbosacral region (principal); M51.16 Intervertebral disc disorders with radiculopathy, lumbar region; M51.17 Intervertebral disc disorders with radiculopathy, lumbosacral region; M48.061 Spinal stenosis, lumbar region without neurogenic claudication; M48.07 Spinal stenosis, lumbosacral region; M41.20 Other idiopathic scoliosis, site unspecified; N28.1 Cyst of kidney, acquired; E88.2 Lipomatosis, not elsewhere classified
CPT/HCPCS: 72148

== ENCOUNTER → 2020-04-25 12:01 | Outpatient (CLI) | payer MEDICARE, MEDICAID, SELFPAY ==
[2018-10-19 14:16] VITALS: BMI 35.3
--- NOTE | 2020-04-25 12:04 | DI.US.S_ITS ---
PROCEDURE: US ABDOMEN COMPLETE INDICATIONS: RUQ LUMP TECHNIQUE: Real-time scanning was performed of the abdominal and retroperitoneal organs, with image documentation. COMPARISON: [facility], CT, ABDOMEN/PELVIS WITHOUT CONTRAST, 07/31/2011, 12:02. [facility], US, ABDOMEN COMPLETE, 04/26/2009, 10:28. FINDINGS: Liver: Liver is normal in size and homogeneous in echotexture. Gallbladder: No gallstones identified. Normal gallbladder wall. No pericholecystic fluid. Negative sonographic Retana sign. Biliary ducts: Intrahepatic bile ducts are non-dilated. Extrahepatic bile duct caliber measures 3.8 mm. Normal is 6-7 mm or less in diameter, or 10 mm or less post-cholecystectomy. Pancreas: Visualized portions of the pancreas are sonographically normal. Spleen: Spleen is normal in size and homogeneous in echotexture. Kidneys: Kidneys are normal in size and echotexture. Right kidney measures 9.2 cm long; left kidney measures 9.0 cm long. No hydronephrosis or nephrolithiasis. No solid masses. 13.1 cm left renal cyst. Aorta: Visualized aorta is normal in caliber at less than 3 cm. Iliacs: Not well seen. IVC: Intrahepatic inferior vena cava is patent. Miscellaneous: No free abdominal fluid. IMPRESSION: 1. 13.1 cm left renal cyst which has increased in size compared to prior CT scan dated 07/31/2011. Dictated by: Smooth [facility] Interpreted: Kelton Egan MD on 04/26/2020 at 13:32 Approved by: Kelton Egan M.D. on 04/27/2020 at 11:40
== END ==
PROVIDERS: Family Provider Family Medicine; PCP Family Medicine; Referring Provider Nurse Practitioner Family; Visit Provider Nurse Practitioner Family
DX: R19.00 Intra-abdominal and pelvic swelling, mass and lump, unspecified site (principal); N28.1 Cyst of kidney, acquired
CPT/HCPCS: 76700

== ENCOUNTER → 2020-05-10 10:13 | Outpatient (CLI) | payer MEDICARE, MEDICAID, SELFPAY ==
[2020-05-03 14:56] VITALS: BMI 35.3
[2020-05-10 12:24] LABS: Cholesterol 234 mg/dL (140-199); HDL Cholesterol 50 mg/dL (40-60); LDL Cholesterol Calculated 154 mg/dL (<100); Triglycerides 149 mg/dL (35-150)
== END ==
PROVIDERS: Family Provider Family Medicine; PCP Family Medicine; Referring Provider Family Medicine; Visit Provider Family Medicine
DX: E78.2 Mixed hyperlipidemia (principal)
CPT/HCPCS: 36415; 80061

== ENCOUNTER → 2020-05-22 12:16 | Outpatient (CLI) | payer MEDICARE, MEDICAID, SELFPAY ==
[2020-05-03 14:56] VITALS: BMI 35.3
[2020-05-23 21:10] LABS: COVID19 Sendout Not Detected (Not Detect)
== END ==
PROVIDERS: Family Provider Family Medicine; PCP Family Medicine; Visit Provider Physician Assistant
DX: Z11.59 Encounter for screening for other viral diseases (principal)
CPT/HCPCS: 87635

== ENCOUNTER 2020-05-25 09:26 | Outpatient (CLI) | payer MEDICARE, MEDICAID, SELFPAY ==
[2020-05-03 14:56] VITALS: BMI 35.3
[2020-05-25] VITALS (8 sets, daily range): BP systolic 135–182; BP diastolic 68–79; PULSE 64–93; RESP 16–17; TEMP 36.4; O2SAT 97–100
--- NOTE | 2020-05-25 09:28 | DI.RAD.S_ITS ---
PROCEDURE: PAIN L/S FACET INJ/BLK 1ST TERRIE COMPARISON: [facility], , PAIN L/S FACET INJ/BLK 1ST TERRIE, 03/09/2020, 9:42. INDICATIONS: SPONDYLOSIS FINDINGS: Fluoroscopic spot filming was performed to verify placement of spinal needles at the L4-L5, L5-S1 level(s), as labeled on the films. Appropriate location(s) of the needle tip(s) was confirmed by injection of iodinated contrast. Dictated by: Kelton Egan M.D. on 05/25/2020 at 13:02 Approved by: Kelton Egan M.D. on 05/25/2020 at 13:02
[2020-05-25] MEDS: BUPIVACAINE 0.5% (PF) VIAL 5 ML INJ (10:37)
[2020-05-25] MEDS: BETAMETHASONE 30 MG/5 ML MDV 12 MG INJ (10:37)
[2020-05-25] MEDS: IOPAMIDOL 15 ML VIAL 3 ML INJ (10:37)
[2020-05-25] MEDS: LIDOCAINE 1% 20 ML 10 ML INJ (10:37)
--- NOTE | 2020-05-25 10:48 | PC.NURSE ---
Patient declined an IV. Dr. Irby aware.
--- NOTE | 2020-05-25 10:53 | P.PCN_ITS ---
Date/Time/Diagnoses Date of procedure: 05/25/20 Time of procedure: 10:53 Pre-procedure diagnosis: 1. FACET ARTHROPATHY 2. AXIAL LBP 3. MULTILEVEL DDD Post-procedure diagnosis: same Procedure Notes Procedure: 1. FLUOROSCOPICALLY GUIDED CONTRAST CONTROLLED FACET JOINT INJECTIONS BILATERAL L4/5, L5/S1 Indications: Shruthi is referred by for treatment of Axial LBP Physician: Jesus Irby Total Fluoroscopy time (seconds): 23 Total sedation minutes: 0 Complications: none Procedure in detail & Post-procedure care: FINDINGS Multilevel Facet Arthropathy with Clinically significant axial LBP DESCRIPTION OF PROCEDURE Fluoroscopically guided, contrast-controlled bilateral L4/5, L5/S1 facet joint injections. Following review of allergy and review of potential side effects and complications, including, but not necessarily limited to, infection, allergic reaction, local tissue breakdown, stroke, temporary or permanent nerve injury, paralysis, and possible , the patient indicated that the patient understood and agreed to proceed. An informed consent document was signed by the patient, witnessed by a nurse, and placed in the patient's chart. Additionally, other treatment options including medications, modalities, and physical therapy were reviewed with the patient. After review of previous anaesthesic history and IV conscious sedation the patient was deemed safe to proceed with today?s procedure with IV conscious sedation as ASA class II designation. Safety time-out was performed to confirm patient ID, procedure to be performed and site of procedure. IV sedation was deemed unnecessary and thus administered by the RN after DO order, titrated to patient comfort during the course of the procedure while the patient remained responsive to all verbal commands. In the prone position, following sterile prep and drape of the lumbar region, the posterior aspect of the L4/5, L5/S1 facet joints were identified fluoroscopically. The skin was anesthetized via a 25-gauge 1.5inch needle with 1% lidocaine solution into the corresponding facet joints. At this point, a 22- gauge 3.5-inch spinal needle was atraumatically introduced and advanced under fluoroscopic guidance into the corresponding facet joints. Following negative aspiration, injections of approximately 0.2cc of Isovue 200 confirmed interarticular placement without vascular uptake. The identical procedure was then performed at the L4/5, L5/S1 facet joints on the left. Radiological data, including multiple fluoroscopic views of the lumbosacral spine, reveal a spinal needle at the L4/5, L5/S1 facet joints bilaterally. Subsequent views show flow of contrast material both superiorly and inferiorly within the joint space without vascular or intrathecal uptake. At this point, a total of 0.5cc including a mixture of 0.25cc Marcaine and 0.25cc betamethasone was injected without complication into each of the corresponding facet joints. The patient tolerated the procedure well without signs or symptoms of complications prior to transfer to the recovery area continued monitoring without incident. The patient was then transferred to the recovery area where they were observed for an appropriate period of time after the injection. The patient reported a VAS score of 7 prior to the procedure and a post- procedure VAS of 0. POST OP INSTRUCTIONS The patient was provided a Pain Log to continue to record their response to the target-specific procedure prior to follow-up visit with their referring physician. Additionally, specific post-injection care instructions and a contact number to our office were provided if concerns arise regarding possible complications associated with the procedure are suspected.
== END 2020-05-25 11:19 | disposition home or self-care (01) ==
LOC: RAD 09:28
PROVIDERS: Family Provider Family Medicine; PCP Family Medicine; Referring Provider Physical Medicine & Rehabilitation; Visit Provider Physical Medicine & Rehabilitation
DX: M47.816 Spondylosis without myelopathy or radiculopathy, lumbar region (principal); M47.817 Spondylosis without myelopathy or radiculopathy, lumbosacral region; M54.5 Low back pain; M51.36 Other intervertebral disc degeneration, lumbar region; M51.37 Other intervertebral disc degeneration, lumbosacral region
CPT/HCPCS: 64493; 64494; J0702; J2250; J3010

== ENCOUNTER → 2020-08-21 12:40 | Outpatient (CLI) | payer MEDICARE, MEDICAID, SELFPAY ==
[2020-05-03 14:56] VITALS: BMI 35.3
[2020-08-21 13:17] LABS: Add Manual Diff / Slide Review NO; Basophils Absolute Auto 0 /uL (0-100); Basophils Percent Auto 0.7 % (0-2); Eosinophils Absolute Auto 100 /uL (0-450); Hematocrit 43.1 % (36-46); Hemoglobin 14.1 g/dL (12.0-16.0); Lymphocytes Absolute Auto 1700 /uL (1100-4500); Lymphocytes Percent Auto 32.6 % (25-40); Mean Corpuscular HGB Conc 32.8 % (30-36); Mean Corpuscular Hemoglobin 30.7 PG (26-34); Mean Corpuscular Volume 93.7 fL (80-100); Monocytes Absolute Auto 400 /uL (0-900); Monocytes Percent Auto 8.2 % (3-14); Neutrophils Absolute Auto 3000 /uL (1500-7000); Neutrophils Percent Auto 57.5 % (50-75); Platelet Count 190 X10^3/uL (150-400); Red Cell Distribution Width 13.7 % (11.6-14.8); White Blood Cell Count 5.2 X10^3/uL (4.5-11.0)
[2020-08-21 13:33] LABS: Erythrocyte Sedimentation Rate 3 MM/HR (0-20)
[2020-08-21 14:16] LABS: Alanine Aminotransferase 25 IU/L (<35); Albumin 4.1 g/dL (3.5-5.0); Albumin Globulin Ratio 1.6 (1.0-2.8); Alkaline Phosphatase 113 U/L (38-126); Aspartate Aminotransferase 30 IU/L (14-36); BUN Creatinine Ratio 19.2 (6-22); Bilirubin Total 0.7 mg/dL (0.2-1.3); Blood Urea Nitrogen 10 mg/dL (7-17); Calcium 9.4 mg/dL (8.4-10.2); Carbon Dioxide 27 mmol/L (22-32); Chloride 108 mmol/L (98-107); Estimated Glomerular Filt Rate > 60.0 mL/min (>60); Globulin 2.6 g/dL (1.7-4.1); Glucose 100 mg/dL (80-110); HEMOLYSIS 22 (0-50); Potassium 4.2 mmol/L (3.4-5.1); Sodium 139 mmol/L (137-145); Total Protein 6.7 g/dL (6.3-8.2)
[2020-08-21 14:18] LABS: C-Reactive Protein Quant < 0.5 mg/dL (<1.0)
[2020-08-21 14:51] LABS: Cholesterol 166 mg/dL (140-199); HDL Cholesterol 47 mg/dL (40-60); LDL Cholesterol Calculated 95 mg/dL (<100); Triglycerides 118 mg/dL (35-150)
== END ==
PROVIDERS: Family Provider Family Medicine; PCP Family Medicine; Referring Provider Internal Medicine Rheumatology; Visit Provider Internal Medicine Rheumatology
DX: M11.20 Other chondrocalcinosis, unspecified site (principal); E78.2 Mixed hyperlipidemia
CPT/HCPCS: 36415; 80053; 80061; 85025; 85651; 86140

== ENCOUNTER → 2021-01-17 15:42 | Outpatient (CLI) | payer MEDICARE, MEDICAID, SELFPAY ==
[2020-05-03 14:56] VITALS: BMI 35.3
[2021-01-17 16:35] LABS: Add Manual Diff / Slide Review NO; Basophils Absolute Auto 100 /uL (0-100); Eosinophils Absolute Auto 200 /uL (0-450); Eosinophils Percent Auto 2.5 % (2-4); Lymphocytes Absolute Auto 2500 /uL (1100-4500); Lymphocytes Percent Auto 39.6 % (25-40); Mean Corpuscular HGB Conc 32.6 % (30-36); Mean Corpuscular Hemoglobin 30.5 PG (26-34); Mean Corpuscular Volume 93.6 fL (80-100); Monocytes Absolute Auto 500 /uL (0-900); Monocytes Percent Auto 7.7 % (3-14); Neutrophils Absolute Auto 3100 /uL (1500-7000); Neutrophils Percent Auto 49.2 % (50-75); Platelet Count 212 X10^3/uL (150-400); Red Blood Cell Count 4.59 X10^6/uL (4.0-5.2); Red Cell Distribution Width 13.3 % (11.6-14.8); White Blood Cell Count 6.2 X10^3/uL (4.5-11.0)
[2021-01-17 17:01] LABS: Erythrocyte Sedimentation Rate 5 MM/HR (0-20)
[2021-01-17 17:59] LABS: Alanine Aminotransferase 24 IU/L (<35); Albumin Globulin Ratio 1.5 (1.0-2.8); Alkaline Phosphatase 110 U/L (38-126); Aspartate Aminotransferase 31 IU/L (14-36); BUN Creatinine Ratio 18.5 (6-22); Bilirubin Total 0.4 mg/dL (0.2-1.3); Blood Urea Nitrogen 12 mg/dL (7-17); C-Reactive Protein Quant < 0.5 mg/dL (<1.0); Calcium 9.7 mg/dL (8.4-10.2); Carbon Dioxide 27 mmol/L (22-32); Chloride 105 mmol/L (98-107); Estimated Glomerular Filt Rate > 60.0 mL/min (>60); Globulin 2.6 g/dL (1.7-4.1); Glucose 102 mg/dL (80-110); HEMOLYSIS < 15 (0-50); Potassium 4.5 mmol/L (3.4-5.1); Sodium 139 mmol/L (137-145); Total Protein 6.6 g/dL (6.3-8.2)
== END ==
PROVIDERS: Family Provider Family Medicine; PCP Family Medicine; Referring Provider Internal Medicine Rheumatology; Visit Provider Internal Medicine Rheumatology
DX: M11.20 Other chondrocalcinosis, unspecified site (principal)
CPT/HCPCS: 36415; 80053; 85025; 85651; 86140

== ENCOUNTER → 2021-05-29 10:19 | Outpatient (CLI) | payer MEDICARE, MEDICAID, SELFPAY ==
[2020-05-03 14:56] VITALS: BMI 35.3
[2021-05-29 11:26] LABS: Add Manual Diff / Slide Review NO; Basophils Absolute Auto 100 /uL (0-100); Eosinophils Absolute Auto 200 /uL (0-450); Eosinophils Percent Auto 2.6 % (2-4); Hematocrit 45.7 % (36-46); Lymphocytes Absolute Auto 2700 /uL (1100-4500); Lymphocytes Percent Auto 45.9 % (25-40); Mean Corpuscular HGB Conc 32.8 % (30-36); Mean Corpuscular Hemoglobin 30.9 PG (26-34); Mean Corpuscular Volume 94.1 fL (80-100); Monocytes Absolute Auto 500 /uL (0-900); Monocytes Percent Auto 8.1 % (3-14); Neutrophils Absolute Auto 2500 /uL (1500-7000); Neutrophils Percent Auto 42.4 % (50-75); Platelet Count 195 X10^3/uL (150-400); Red Blood Cell Count 4.86 X10^6/uL (4.0-5.2); Red Cell Distribution Width 13.4 % (11.6-14.8); White Blood Cell Count 5.9 X10^3/uL (4.5-11.0)
[2021-05-29 11:41] LABS: Erythrocyte Sedimentation Rate 3 MM/HR (0-20)
[2021-05-29 11:51] LABS: Alanine Aminotransferase 21 IU/L (<35); Albumin 4.2 g/dL (3.5-5.0); Albumin Globulin Ratio 1.4 (1.0-2.8); Alkaline Phosphatase 105 U/L (38-126); Aspartate Aminotransferase 28 IU/L (14-36); BUN Creatinine Ratio 21.7 (6-22); Bilirubin Total 0.6 mg/dL (0.2-1.3); Blood Urea Nitrogen 13 mg/dL (7-17); C-Reactive Protein Quant < 0.5 mg/dL (<1.0); Calcium 9.7 mg/dL (8.4-10.2); Carbon Dioxide 26 mmol/L (22-32); Chloride 107 mmol/L (98-107); Estimated Glomerular Filt Rate > 60.0 mL/min (>60); Glucose 106 mg/dL (80-110); HEMOLYSIS < 15 (0-50); Potassium 4.1 mmol/L (3.4-5.1); Sodium 139 mmol/L (137-145); Total Protein 7.2 g/dL (6.3-8.2)
== END ==
PROVIDERS: Family Provider Family Medicine; PCP Family Medicine; Referring Provider Internal Medicine Rheumatology; Visit Provider Internal Medicine Rheumatology
DX: M11.20 Other chondrocalcinosis, unspecified site (principal)
CPT/HCPCS: 36415; 80053; 85025; 85651; 86140

== ENCOUNTER → 2021-11-26 08:51 | Outpatient (CLI) | payer MEDICARE, MEDICAID, SELFPAY ==
[2020-05-03 14:56] VITALS: BMI 35.3
[2021-11-26 10:13] LABS: Add Manual Diff / Slide Review NO; Basophils Absolute Auto 100 /uL (0-100); Basophils Percent Auto 0.9 % (0-2); Eosinophils Absolute Auto 100 /uL (0-450); Eosinophils Percent Auto 2.4 % (2-4); Hemoglobin 14.4 g/dL (12.0-16.0); Lymphocytes Absolute Auto 2100 /uL (1100-4500); Lymphocytes Percent Auto 36.9 % (25-40); Mean Corpuscular HGB Conc 32.6 % (30-36); Mean Corpuscular Hemoglobin 30.6 PG (26-34); Mean Corpuscular Volume 93.6 fL (80-100); Monocytes Absolute Auto 700 /uL (0-900); Monocytes Percent Auto 12.2 % (3-14); Neutrophils Absolute Auto 2700 /uL (1500-7000); Neutrophils Percent Auto 47.6 % (50-75); Platelet Count 186 X10^3/uL (150-400); White Blood Cell Count 5.7 X10^3/uL (4.5-11.0)
[2021-11-26 10:35] LABS: Erythrocyte Sedimentation Rate 15 MM/HR (0-20)
[2021-11-26 10:54] LABS: Alanine Aminotransferase 16 IU/L (<35); Albumin 4.1 g/dL (3.5-5.0); Albumin Globulin Ratio 1.5 (1.0-2.8); Alkaline Phosphatase 92 U/L (38-126); Aspartate Aminotransferase 24 IU/L (14-36); BUN Creatinine Ratio 15.7 (6-22); Bilirubin Total 0.5 mg/dL (0.2-1.3); Blood Urea Nitrogen 11 mg/dL (7-17); C-Reactive Protein Quant 3.4 mg/dL (<1.0); Calcium 9.5 mg/dL (8.4-10.2); Carbon Dioxide 31 mmol/L (22-32); Chloride 105 mmol/L (98-107); Estimated Glomerular Filt Rate > 60.0 mL/min (>60); Globulin 2.7 g/dL (1.7-4.1); Glucose 103 mg/dL (80-110); HEMOLYSIS < 15 (0-50); Sodium 140 mmol/L (137-145); Total Protein 6.8 g/dL (6.3-8.2)
[2021-11-26 10:59] LABS: Potassium 5.4 mmol/L (3.4-5.1)
== END ==
PROVIDERS: Family Provider Family Medicine; PCP Family Medicine; Referring Provider Internal Medicine Rheumatology; Visit Provider Internal Medicine Rheumatology
DX: M11.20 Other chondrocalcinosis, unspecified site (principal)
CPT/HCPCS: 36415; 80053; 85025; 85651; 86140

== ENCOUNTER → 2022-01-22 12:19 | Outpatient (CLI) | payer MEDICARE, MEDICAID, SELFPAY ==
[2020-05-03 14:56] VITALS: BMI 35.3
[2022-01-22 13:20] LABS: Add Manual Diff / Slide Review NO; Basophils Absolute Auto 100 /uL (0-100); Basophils Percent Auto 1.1 % (0-2); Eosinophils Absolute Auto 100 /uL (0-450); Eosinophils Percent Auto 1.6 % (2-4); Hematocrit 43.4 % (36-46); Hemoglobin 14.5 g/dL (12.0-16.0); Lymphocytes Absolute Auto 2400 /uL (1100-4500); Lymphocytes Percent Auto 50.6 % (25-40); Mean Corpuscular HGB Conc 33.4 % (30-36); Mean Corpuscular Hemoglobin 30.8 PG (26-34); Mean Corpuscular Volume 92.2 fL (80-100); Monocytes Absolute Auto 300 /uL (0-900); Monocytes Percent Auto 7.2 % (3-14); Neutrophils Absolute Auto 1900 /uL (1500-7000); Neutrophils Percent Auto 39.5 % (50-75); Platelet Count 178 X10^3/uL (150-400); Red Blood Cell Count 4.71 X10^6/uL (4.0-5.2); Red Cell Distribution Width 13.3 % (11.6-14.8); White Blood Cell Count 4.7 X10^3/uL (4.5-11.0)
[2022-01-22 13:35] LABS: Erythrocyte Sedimentation Rate 3 MM/HR (0-20)
[2022-01-22 13:41] LABS: Alanine Aminotransferase 21 IU/L (<35); Albumin 4.3 g/dL (3.5-5.0); Albumin Globulin Ratio 1.7 (1.0-2.8); Alkaline Phosphatase 97 U/L (38-126); Aspartate Aminotransferase 28 IU/L (14-36); Bilirubin Total 0.5 mg/dL (0.2-1.3); Blood Urea Nitrogen 12 mg/dL (7-17); C-Reactive Protein Quant < 0.5 mg/dL (<1.0); Calcium 9.3 mg/dL (8.4-10.2); Carbon Dioxide 28 mmol/L (22-32); Chloride 107 mmol/L (98-107); Estimated Glomerular Filt Rate > 60 mL/min (>60); Globulin 2.6 g/dL (1.7-4.1); Glucose 98 mg/dL (80-110); HEMOLYSIS < 15 (0-50); Potassium 4.2 mmol/L (3.4-5.1); Sodium 141 mmol/L (137-145); Total Protein 6.9 g/dL (6.3-8.2)
== END ==
PROVIDERS: Family Provider Family Medicine; PCP Family Medicine; Referring Provider Internal Medicine Rheumatology; Visit Provider Internal Medicine Rheumatology
DX: M11.20 Other chondrocalcinosis, unspecified site (principal)
CPT/HCPCS: 36415; 80053; 85025; 85651; 86140

== ENCOUNTER → 2022-04-16 13:09 | Outpatient (CLI) | payer MEDICARE, MEDICAID, SELFPAY ==
[2020-05-03 14:56] VITALS: BMI 35.3
--- NOTE | 2022-04-16 | DI.MG.S_ITS ---
BILATERAL DIGITAL SCREENING MAMMOGRAM 3D/2D WITH CAD: 04/16/2022 CLINICAL: Routine screening. Comparison is made to exams dated: 08/30/2019 mammogram, 11/26/2016 mammogram, and 12/13/2014 mammogram - [facility]. The tissue of both breasts is predominantly fatty. Current study was also evaluated with a Computer Aided Detection (CAD) system. There are benign calcifications in both breasts. No significant masses, calcifications, or other findings are seen in either breast. There has been no significant interval change. IMPRESSION: BENIGN There is no mammographic evidence of malignancy. A 1 year screening mammogram is recommended. Based on the Tyrer Cuzick model (a risk assessment model) the patient's lifetime risk is 1.1% and her 10 year risk is 0.0%. According to the ACR, ACS, and NCCN guidelines, an annual breast MRI exam along with mammogram is recommended if the patient's lifetime risk is 20% or greater. This exam was interpreted at Station ID: [id number]. NOTE: For mammograms, a report in lay terms will be sent to the patient. Approximately 15% of breast malignancies will not be visualized mammographically. In the management of a palpable breast mass, a negative mammogram must not discourage biopsy of a clinically suspicious lesion. Electronically Signed By: Jesus navas/samuel:04/16/2022 14:06:40 letter sent: Normal Exam ACR BI-RADS Category 2: Benign Finding(s) [id number]
== END ==
PROVIDERS: Family Provider Family Medicine; PCP Family Medicine; Referring Provider Family Medicine; Visit Provider Family Medicine
DX: Z12.31 Encounter for screening mammogram for malignant neoplasm of breast (principal)
CPT/HCPCS: 77063; 77067

== ENCOUNTER → 2022-08-08 08:44 | Outpatient (CLI) | payer MEDICARE, MEDICAID, SELFPAY ==
[2020-05-03 14:56] VITALS: BMI 35.3
[2022-08-08 10:32] LABS: Cholesterol 160 mg/dL (140-199); HDL Cholesterol 51 mg/dL (40-60); LDL Cholesterol Calculated 87 mg/dL (<100); Triglycerides 112 mg/dL (35-150)
== END ==
PROVIDERS: Family Provider Family Medicine; PCP Family Medicine; Referring Provider Family Medicine; Visit Provider Family Medicine
DX: E78.2 Mixed hyperlipidemia (principal)
CPT/HCPCS: 36415; 80061

== ENCOUNTER → 2023-03-12 13:21 | Outpatient (CLI) | payer MEDICARE, MEDICAID, SELFPAY ==
[2020-05-03 14:56] VITALS: BMI 35.3
[2023-03-12 13:50] LABS: Add Manual Diff / Slide Review NO; Basophils Absolute Auto 100 /uL (0-100); Basophils Percent Auto 1.2 % (0-2); Eosinophils Absolute Auto 100 /uL (0-450); Eosinophils Percent Auto 1.5 % (2-4); Hemoglobin 13.9 g/dL (12.0-16.0); Lymphocytes Absolute Auto 4100 /uL (1100-4500); Lymphocytes Percent Auto 55.3 % (25-40); Mean Corpuscular HGB Conc 33.2 % (30-36); Mean Corpuscular Hemoglobin 30.8 PG (26-34); Monocytes Absolute Auto 500 /uL (0-900); Monocytes Percent Auto 7.4 % (3-14); Neutrophils Absolute Auto 2600 /uL (1500-7000); Neutrophils Percent Auto 34.6 % (50-75); Platelet Count 242 X10^3/uL (150-400); Red Blood Cell Count 4.51 X10^6/uL (4.0-5.2); Red Cell Distribution Width 13.7 % (11.6-14.8); White Blood Cell Count 7.4 X10^3/uL (4.5-11.0)
[2023-03-12 14:05] LABS: Alanine Aminotransferase 22 IU/L (<35); Albumin 4.1 g/dL (3.5-5.0); Albumin Globulin Ratio 1.6 (1.0-2.8); Alkaline Phosphatase 101 U/L (38-126); Aspartate Aminotransferase 25 IU/L (14-36); BUN Creatinine Ratio 14.5 (6-22); Bilirubin Total 0.6 mg/dL (0.2-1.3); Blood Urea Nitrogen 10 mg/dL (7-17); C-Reactive Protein Quant < 0.5 mg/dL (<1.0); Calcium 9.4 mg/dL (8.4-10.2); Carbon Dioxide 28 mmol/L (22-32); Chloride 103 mmol/L (98-107); Estimated Glomerular Filt Rate > 60 mL/min (>60); Globulin 2.5 g/dL (1.7-4.1); Glucose 102 mg/dL (80-110); HEMOLYSIS < 15 (0-50); Potassium 4.3 mmol/L (3.4-5.1); Sodium 139 mmol/L (137-145); Total Protein 6.6 g/dL (6.3-8.2)
[2023-03-12 14:07] LABS: Erythrocyte Sedimentation Rate 7 MM/HR (0-20)
== END ==
PROVIDERS: Family Provider Family Medicine; PCP Family Medicine; Referring Provider Specialist/Technologist Athletic Trainer; Visit Provider Specialist/Technologist Athletic Trainer
DX: M11.20 Other chondrocalcinosis, unspecified site (principal)
CPT/HCPCS: 36415; 80053; 85025; 85651; 86140

== ENCOUNTER → 2023-03-19 15:04 | Outpatient (CLI) | payer MEDICARE, MEDICAID, SELFPAY ==
[2020-05-03 14:56] VITALS: BMI 35.3
[2023-03-19 18:27] LABS: TSH w/ Reflex to FT4 1.41 uIU/mL (0.47-4.68)
== END ==
PROVIDERS: Family Provider Family Medicine; PCP Family Medicine; Referring Provider Family Medicine; Visit Provider Family Medicine
DX: R53.83 Other fatigue (principal)
CPT/HCPCS: 36415; 84443

== ENCOUNTER → 2023-06-17 10:53 | Outpatient (CLI) | payer MEDICARE, MEDICAID, SELFPAY ==
[2020-05-03 14:56] VITALS: BMI 35.3
--- NOTE | 2023-06-17 | DI.RAD.S_ITS ---
PROCEDURE: XR LUMBAR SPINE MIN 4V INDICATIONS: Chronic pain syndrome TECHNIQUE: 5 views of the lumbar spine were acquired, including bilateral oblique views. COMPARISON: [facility], CR, XR LUMBAR SPINE MIN 4V, 08/23/2019, 8:41. FINDINGS: Bones: 5 [id number] vertebrae are present. There is moderate levoscoliosis with apex at L2-L3. Grade 1 anterolisthesis of L4 on L5 and L5 on S1. No vertebral body compression fractures. No suspicious bony lesions. Moderate degenerative disc disease at L2-L3, L3-L4 and L5-S1. Mild degenerative disease at other levels. Severe facet arthropathy at L3-L4, L4-L5 and L5-S1. 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 Soft tissues: Overlying bowel gas pattern is normal. No suspicious soft tissue calcifications. Oblique images: No pars defects. IMPRESSION: 1. Moderate levoscoliosis. 2. Moderate degenerative disc disease and severe facet arthropathy in lumbar spine. 3. Grade 1 anterolisthesis of L4 on L5 and L5 on S1. 4. Baastrups disease. Dictated by: Edelmira Delarosa M.D. on 06/17/2023 at 13:21 Approved by: Edelmira Delarosa M.D. on 06/17/2023 at 13:35
--- NOTE | 2023-06-17 | DI.RAD.S_ITS ---
PROCEDURE: XR THORACIC SPINE 2V INDICATIONS: Chronic pain syndrome TECHNIQUE: 3 views of the thoracic spine were acquired. COMPARISON: [facility], CR, XR LUMBAR SPINE MIN 4V, 06/17/2023, 11:12. FINDINGS: Bones: No fractures or dislocations. No suspicious bony lesions. 12 pairs of ribs are noted, and appear intact where visualized. Mild thoracic kyphoscoliosis. Severe lumbar levoscoliosis. Soft tissues: No paravertebral stripe thickening. IMPRESSION: Mild thoracic kyphoscoliosis. Severe lumbar levoscoliosis. Dictated by: Kye Floyd M.D. on 06/17/2023 at 16:30 Approved by: Kye Floyd M.D. on 06/17/2023 at 16:38
== END ==
PROVIDERS: Family Provider Family Medicine; PCP Family Medicine; Referring Provider Internal Medicine Rheumatology; Visit Provider Internal Medicine Rheumatology
DX: M51.36 Other intervertebral disc degeneration, lumbar region (principal); M51.37 Other intervertebral disc degeneration, lumbosacral region; M47.816 Spondylosis without myelopathy or radiculopathy, lumbar region; M47.817 Spondylosis without myelopathy or radiculopathy, lumbosacral region; M43.16 Spondylolisthesis, lumbar region; M43.17 Spondylolisthesis, lumbosacral region; M48.20 Kissing spine, site unspecified; M41.9 Scoliosis, unspecified; G89.4 Chronic pain syndrome
CPT/HCPCS: 72070; 72110

== ENCOUNTER → 2024-04-22 13:53 | Outpatient (CLI) | payer MEDICARE, MEDICAID, SELFPAY ==
[2020-05-03 14:56] VITALS: BMI 35.3
[2024-04-22 14:28] LABS: Hematocrit 42.1 % (36-46); Mean Corpuscular HGB Conc 33.2 % (30-36); Mean Corpuscular Hemoglobin 31.5 PG (26-34); Mean Corpuscular Volume 94.8 fL (80-100); Platelet Count 196 X10^3/uL (150-400); Red Blood Cell Count 4.44 X10^6/uL (4.0-5.2); Red Cell Distribution Width 13.3 % (11.6-14.8)
[2024-04-22 14:54] LABS: Erythrocyte Sedimentation Rate 2 MM/HR (0-20)
[2024-04-22 14:55] LABS: Alanine Aminotransferase 17 IU/L (<35); Albumin 4.2 g/dL (3.5-5.0); Albumin Globulin Ratio 2.1 (1.0-2.8); Alkaline Phosphatase 88 U/L (38-126); Aspartate Aminotransferase 25 IU/L (14-36); BUN Creatinine Ratio 19.7 (6-22); Bilirubin Total 0.6 mg/dL (0.2-1.3); Blood Urea Nitrogen 14 mg/dL (7-17); C-Reactive Protein Quant < 0.5 mg/dL (<1.0); Calcium 9.3 mg/dL (8.4-10.2); Carbon Dioxide 25 mmol/L (22-32); Chloride 108 mmol/L (98-107); Estimated Glomerular Filt Rate > 60 mL/min (>60); Glucose 93 mg/dL (80-110); HEMOLYSIS < 15 (0-50); Potassium 4.4 mmol/L (3.4-5.1); Sodium 140 mmol/L (137-145); Total Protein 6.2 g/dL (6.3-8.2)
== END ==
PROVIDERS: Family Provider Family Medicine; PCP Family Medicine; Referring Provider Internal Medicine Rheumatology; Visit Provider Internal Medicine Rheumatology
DX: M11.20 Other chondrocalcinosis, unspecified site (principal)
CPT/HCPCS: 36415; 80053; 85025; 85027; 85651; 86140

== ENCOUNTER → 2024-09-21 13:22 | Outpatient (CLI) | payer MEDICARE, MEDICAID, SELFPAY ==
[2020-05-03 14:56] VITALS: BMI 35.3
--- NOTE | 2024-09-21 13:23 | DI.MG.S_ITS ---
BILATERAL DIGITAL SCREENING MAMMOGRAM 3D/2D WITH CAD: 09/21/2024 CLINICAL: Routine screening. Comparison is made to exams dated: 04/16/2022 mammogram, 08/30/2019 mammogram, and 11/26/2016 mammogram - [facility]. The breasts are almost entirely fatty (category a/<25% glandular tissue). Current study was also evaluated with a Computer Aided Detection (CAD) system. There are benign calcifications in both breasts. No significant masses, calcifications, or other findings are seen in either breast. There has been no significant interval change. IMPRESSION: BENIGN There is no mammographic evidence of malignancy. A 1 year screening mammogram is recommended. Based on the Tyrer Cuzick model (a risk assessment model) the patient's lifetime risk is 0.4% and her 10 year risk is 0.0%. According to the ACR, ACS, and NCCN guidelines, an annual breast MRI exam along with mammogram is recommended if the patient's lifetime risk is 20% or greater. This exam was interpreted at Station ID: [id number]. NOTE: For mammograms, a report in lay terms will be sent to the patient. Approximately 15% of breast malignancies will not be visualized mammographically. In the management of a palpable breast mass, a negative mammogram must not discourage biopsy of a clinically suspicious lesion. Electronically Signed By: Fazal claire/samuel:09/21/2024 16:26:40 letter sent: Normal Exam ACR BI-RADS Category 2: Benign
== END ==
PROVIDERS: Family Provider Family Medicine; PCP Family Medicine; Referring Provider Family Medicine; Visit Provider Family Medicine
DX: Z12.31 Encounter for screening mammogram for malignant neoplasm of breast (principal); R92.313 Mammographic fatty tissue density, bilateral breasts
CPT/HCPCS: 77063; 77067

== ENCOUNTER → 2024-10-07 10:04 | Outpatient (CLI) | payer MEDICARE, MEDICAID, SELFPAY ==
[2020-05-03 14:56] VITALS: BMI 35.3
--- NOTE | 2024-10-07 10:06 | DI.ECHO.S_ITS ---
[facility] : : [id number] : [place] : : [id number] : : Phone: [phone] Echocardiogram Report + + :Name: CYNDEE TORRES Study Date: 10/07/2024 Height: 61 in : :Hospital ReadingLocation: Weight: 186 lb : : Gender: Female BSA: 1.8 m2 : :: 1940 Age: 84 yrs BP: 148/82 mmHg: :Reason For Study: DYSPNEA : :Ordering Physician: KADIE SERNAPerformed By: Kortney Mcfarlane : :Referring: KADIE SERNA : + + Interpretation Summary 1) Normal left ventricular size, wall motion, and systolic function (EF 60- 65%). 2) Normal right ventricular size and function. 3) There is mild aortic regurgitation. 4) No prior Echo available for comparison. Procedure: A two-dimensional transthoracic echocardiogram with color flow and Doppler was performed. The study quality was technically adequate. There is no prior echocardiogram noted for this patient. The patient was in sinus rhythm with heart rates between 68-87 bpm during the exam. Left Ventricle: There is borderline concentric left ventricular hypertrophy. The left ventricle is normal in size. The ejection fraction is estimated to be 60-65%. Left ventricular systolic function appears normal without focal wall motion abnormalities. Diastolic parameters suggest a relaxation abnormality of the left ventricle, consistent with probable normal filling pressures. Right Ventricle: The right ventricle is normal in size and function. Atria: The left atrium is moderately dilated. Right atrial size is normal. There is no Doppler evidence for an interatrial shunt. Mitral Valve: There is mild mitral annular calcification. There is trace mitral regurgitation. Aortic Valve: The aortic valve is trileaflet. The aortic valve opens well. There is no aortic valve stenosis. There is mild aortic regurgitation. Tricuspid Valve: The tricuspid valve leaflets are thin and pliable. There is mild tricuspid regurgitation. The right ventricular systolic pressure is estimated to be at least 39 mmHg based on an estimated right atrial pressure of 3 mm Hg. Pulmonic Valve: The pulmonic valve is not well seen, but is grossly normal. There is no pulmonic valvular regurgitation. Great Vessels: The aortic root is normal size. The dimensions of the ascending aorta are normal. The IVC is of normal diameter and collapses greater than 50% with a sniff. This suggests a low right atrial pressure of 3 mm Hg. Pericardium/ Pleura There is no pericardial effusion. There is no pleural effusion. MMode/2D Measurements & Calculations LVIDd: 4.2 cm LVOT diam: 2.0 cm LVIDs: 2.4 cm Ao root diam: 3.0 cm FS: 41.7 % asc Aorta Diam: 3.1 cm EPSS: 0.54 cm Ao Arch Diam (Prox Trans): 2.4 cm IVSd: 1.1 cm LVPWd: 1.1 cm LV reaves. diameter/BSA (cm/m^2): 2.3 LV sys. diameter/BSA (cm/m^2): 1.3 LA A2 area: 23.0 cm2 RA long axis: 4.4 cm LA A4 area: 21.2 cm2 RA area: 13.8 cm2 LA length (vol): 5.3 cm RA vol: 37.3 ml LA vol: 78.3 ml RA : 20.4 ml/m2 LA vol index: 42.7 ml/m2 IVC diam: 1.6 cm RVD1 (basal): 3.7 cm RVD2 (mid): 2.9 cm TAPSE: 2.2 cm Doppler Measurements & Calculations Ao V2 max: 151.6 cm/sec LVOT Max Eric: 119.7 cm/sec Ao V2 mean: 104.4 cm/sec LV V1 max P.7 mmHg Ao max P.2 mmHg LV V1 VTI: 24.5 cm Ao mean P.9 mmHg SABA(I,D): 2.3 cm2 Ao V2 VTI: 32.2 cm SABA(V,D): 2.4 cm2 sev ratio: 0.76 SABA indexed to BSA (cm^2/m^2): 1.3 MV E max eric: 72.8 cm/sec TR max eric: 299.1 cm/sec MV A max eric: 91.3 cm/sec TR max P.8 mmHg MV E/A: 0.80 PA V2 max: 86.9 cm/sec Med Peak E' Eric: 6.4 cm/sec PA V2 mean: 64.5 cm/sec E/E' med: 11.4 PA mean P.8 mmHg Lat Peak E' Eric: 7.0 cm/sec PA pr(Accel): 41.3 mmHg E/E' lat: 10.5 E/e' average: 10.9 MV dec time: 0.21 sec SV(LVOT): 74.5 ml Reading Physician:11:52 AM
== END ==
PROVIDERS: Family Provider Family Medicine; PCP Family Medicine; Referring Provider Family Medicine; Visit Provider Family Medicine
DX: R06.09 Other forms of dyspnea (principal); I08.2 Rheumatic disorders of both aortic and tricuspid valves; R60.0 Localized edema
CPT/HCPCS: 93306

== ENCOUNTER → 2025-04-27 09:41 | Outpatient (CLI) | payer MEDICARE, MEDICAID, SELFPAY ==
[2024-12-30 08:23] VITALS: BMI 35.3
[2025-04-27 10:55] LABS: Add Manual Diff / Slide Review NO; Hematocrit 42.3 % (36-46); Hemoglobin 14.0 g/dL (12.0-16.0); Lymphocytes Absolute Auto 3900 /uL (1100-4500); Mean Corpuscular HGB Conc 33.2 % (30-36); Mean Corpuscular Hemoglobin 31.5 PG (26-34); Mean Corpuscular Volume 94.9 fL (80-100); Platelet Count 170 X10^3/uL (150-400)
[2025-04-27 11:36] LABS: Alanine Aminotransferase 17 IU/L (<35); Albumin 4.2 g/dL (3.5-5.0); Albumin Globulin Ratio 1.9 (1.0-2.8); Alkaline Phosphatase 89 U/L (38-126); Blood Urea Nitrogen 15 mg/dL (7-17); Calcium 9.4 mg/dL (8.4-10.2); Carbon Dioxide 28 mmol/L (22-32); Chloride 104 mmol/L (98-107); Cholesterol 137 mg/dL (140-199); Estimated Glomerular Filt Rate > 60 mL/min (>60); Globulin 2.2 g/dL (1.7-4.1); Glucose 93 mg/dL (70-99); HDL Cholesterol 56 mg/dL (40-60); HEMOLYSIS < 15 (0-50); Potassium 4.8 mmol/L (3.4-5.1); Sodium 139 mmol/L (137-145); Total Protein 6.4 g/dL (6.3-8.2); Triglycerides 84 mg/dL (35-150)
== END ==
LOC: LAB 09:42
PROVIDERS: Family Provider Family Medicine; PCP Family Medicine; Referring Provider Family Medicine; Visit Provider Family Medicine
DX: M06.9 Rheumatoid arthritis, unspecified (principal); E78.2 Mixed hyperlipidemia; R06.09 Other forms of dyspnea
CPT/HCPCS: 36415; 80053; 80061; 85025